=== PATIENT | female | born 1950 | race Caucasian/White ===

== ENCOUNTER → 2021-10-18 11:43 | Outpatient (CLI) | payer MEDICARE, OTHER, SELFPAY ==
--- NOTE | ~2021-10-18 | XR_ITS ---
XR knee RT min 4V DATE: 10/18/2021 11:56 INDICATION: Right knee pain. No injury. TECHNIQUE: AP, lateral, PA, sunrise views COMPARISON: None FINDINGS: There is superior pole patellar enthesopathy. No fracture or dislocation or joint effusion, periosteal reaction or bone destruction, radiopaque int ra-articular loose body or chondral calcinosis. Joint spaces are relatively preserved. IMPRESSION: Superior pole patellar enthesopathy Reviewed, dictated and finalized at location B.
== END ==
PROVIDERS: PCP Family Medicine; Visit Provider Family Medicine
DX: M25.561 Pain in right knee (principal); M77.31 Calcaneal spur, right foot
CPT/HCPCS: 73564

== ENCOUNTER 2021-10-22 09:08 | Outpatient (CLI) | payer MEDICARE, OTHER, SELFPAY ==
[2021-10-22 18:47] LABS: Hematocrit 44.8 % (37.0-47.0); Hemoglobin 14.6 g/dL (12.0-15.0); Mean Corpuscular HGB Conc 32.6 g/dl (32-36); Mean Corpuscular Hemoglobin 31.9 pg (26-34); Mean Platelet Volume 10.7 fl (7.4-10.4); Platelet Count Result 269 k/mm3 (150-375); Red Blood Count 4.57 M/mm3 (4.2-5.4); Red Cell Distribution Width 13.2 % (11.5-14.5); White Blood Count 5.9 K/mm3 (4.5-10.0)
[2021-10-22 18:58] LABS: Alanine Aminotransferase 23 U/L (6-35); Albumin Level 4.2 g/dL (3.5-5.1); Alkaline Phosphatase 47 U/L (38-126); Anion Gap 6 mmol/L (8-16); Aspartate Amino Transferase 35 U/L (14-36); Bilirubin,Total 0.5 mg/dL (0.2-1.3); Blood Urea Nitrogen 19 mg/dL (7-17); Calcium 9.1 mg/dL (8.4-10.2); Carbon Dioxide 29 mmol/L (22-30); Chloride 103 mmol/L (98-107); Cholesterol 224 mg/dL (0-200); Estimated Glomerular Filt Rate > 60; Glucose 97 mg/dL (65-110); HDL Direct 72 mg/dL; Potassium 4.1 mmol/L (3.4-5.0); Sodium 138 mmol/L (137-145); Triglycerides 72 mg/dL (<150)
[2021-10-22 19:08] LABS: LDL Cholesterol Direct 98 mg/dL
== END 2021-10-22 09:09 | disposition home or self-care (01) ==
PROVIDERS: PCP Family Medicine; Visit Provider Family Medicine
DX: G47.00 Insomnia, unspecified (principal); E78.5 Hyperlipidemia, unspecified; Z79.899 Other long term (current) drug therapy
CPT/HCPCS: 36415; 80053; 80061; 84443; 85027

== ENCOUNTER 2021-11-28 07:39 | Outpatient (CLI) | payer MEDICARE, OTHER, SELFPAY ==
--- NOTE | 2021-12-23 18:34 | WPDSLEEPSTUD ---
Sleep Study Date of Study: 11/28/21 Ordering Provider: Nieves Morley DO Interpreting Physician: Nieves Morley DO Sleep Study Type: Polysomnogram Height: 1.68 m Weight: 65.771 kg Body Mass Index: 23.3 Neck Circumference (inches): 13 [place]: 6 Reason for Sleep Study Insomnia Sleep History The patient is a 71-year-old female with insomnia, hyperlipidemia, interstitial cystitis and history of tobacco use that had a sleep study ordered for evaluation of her insomnia. The patient denies awakening from sleep short of breath. She denies awakening at night with heartburn, belching or cough. She occasionally snores loud enough that others complain. She occasionally has trouble sleeping when she has a cold. She denies waking up gasping for air throughout the night. She denies having breathing problems at night observed by herself or others. She occasionally sweats excessively at night. She occasionally has heart palpitations or irregular heartbeats during the night. He rarely falls asleep during the day but never while driving. She denies sleep paralysis and cataplexy. She rarely has trouble at school or work due to sleepiness. She occasionally experiences vivid dreamlike scenes upon awakening or falling asleep. She occasionally feels afraid of going to sleep. She denies having nightmares. She occasionally remembers her dreams. She constantly has thoughts racing through her mind. She rarely feels sad or depressed. She occasionally has anxiety. She rarely has muscular tension. She occasionally notices parts of her body jerk. She denies kicking during the night. She denies having crawling and aching feelings in her legs as well as leg pain during the night. She occasionally grinds her teeth during sleep but never awakens with morning jaw pain. She is rarely bothered by pain during the day but occasionally awakened by pain during the night. She occasionally wakes up feeling stiff in the morning. She occasionally wakes up with sore or achy muscles. She occasionally wakes up with pain in the neck, spine or other joints. She goes to bed at 10:00 p.m. of both weekdays and weekends. She is able to fall asleep within 10-15 minutes if she takes her lorazepam. She will wake up at most once throughout the night if she takes her lorazepam. If she does not, she will wake up 3-4 times throughout the night. when she awakens, she will read, listen to a book or do yoga. It can take her 60-90 minutes to fall back asleep if she does not take the lorazepam. She wakes up at 7:00 a.m. on both weekdays and weekends. She gets 7 hours of sleep when she takes her medicine and 3-4 hours of sleep if she does not. She will stay in bed for 30 minutes after waking up in the morning. She currently lives with her . She does not consume any caffeinated beverages within 2 hours of bedtime. She does not engage in physical exercise before bedtime. She will read before falling asleep. She does not watch television before falling asleep. She will read before falling asleep. She does not take naps in the afternoon or the evening. She drinks 2 cups of caffeinated beverage before 1:00 p.m.. He drinks 2 alcoholic beverages per week. She quit smoking cigarettes over 40 years ago. She denies recreational drug use. [facility] Past Medical History Medical History Interstitial cystitis Surgical History Surgical History History of hysterectomy Hx of cholecystectomy Family History Family History Other Alcohol abuse Father Lung cancer Sibling Lung cancer Social History Social History Smoking status: Never smoker Alcohol intake: current Drinks per week: 3 Alcohol use details: Beer/Wine Substance use: bill
[2021-12-23 18:44] VITALS: BMI 23.3
== END 2021-11-29 06:26 | disposition home or self-care (01) ==
PROVIDERS: PCP Family Medicine; Visit Provider Family Medicine
DX: G47.9 Sleep disorder, unspecified (principal); G47.61 Periodic limb movement disorder
CPT/HCPCS: 95810

== ENCOUNTER 2022-01-11 09:07 | Emergency (ER) | payer MEDICARE, OTHER, SELFPAY ==
[2022-01-11 09:25] VITALS: BP 126/76; PULSE 76; RESP 16; TEMP 36.6; O2SAT 100
--- NOTE | 2022-01-11 10:52 | ED.URI ---
HPI - URI/Sore Throat General Chief Complaint: Upper Respiratory Infection Stated Complaint: sore throat congestion Time Seen by Provider: 01/11/22 10:53 Source: patient, RN notes reviewed and old records reviewed Mode of arrival: ambulatory Limitations: no limitations History of Present Illness HPI Narrative: 71-year-old female who presents to [facility] with complaints of sore throat, body aches, right ear pain since yesterday. Patient has taken some ibuprofen for her symptoms. Patient states she did flu shot yesterday and has been COVID vaccinated.Patient did home testing for COVID which was negative this a.m. Patient reports that her throat is painful rates it 8/10 achy and sharp with some neck pain also MD elicited complaint: sore throat and nasal congestion Pain scale (0-10): 8 Treatments prior to arrival: ibuprofen Related Data Home Medications Medication Instructions Recorded Confirmed multivitamin (Daily Multi-Vitamin 1 tablet PO DAILY 10/18/21 01/11/22 tablet) vit C 250 mg-E 90 mg-zinc 40 1 tablet PO QAM AND QPM 10/18/21 01/11/22 mg-copper 1 [id number] chew tablet (PreserVision AREDS-2) bergamot extract 650 mg tablet 650 mg PO DAILY 11/06/21 01/11/22 cranberry 500 mg capsule 500 mg PO DAILY 11/06/21 01/11/22 melatonin 10 mg capsule 10 mg PO QHS 11/06/21 01/11/22 famotidine 20 mg tablet 20 mg PO DAILY 01/11/22 01/11/22 Allergies Allergy/AdvReac Type Severity Reaction Status Date / Time Penicillins Allergy Unknown Hives Verified 01/11/22 09:55 Sulfa (Sulfonamide Allergy Unknown Hives Verified 01/11/22 09:55 Antibiotics) Inhaled Anesthetics (Halogen AdvReac Severe Nausea and Verified 01/11/22 09:55 Based) Vomiting trazodone AdvReac Mild Palpitation Uncoded 01/01/22 10:54 s Review of Systems Review of Systems: CONSTITUTIONAL: Denies malaise, chills, sweats, or fever. EYES: Denies visual changes, redness, or discharge. ENT: rhinorrhea, congestion,no sinus pain,right otalgia and sore throat. CARDIOVASCULAR: Denies chest pain, palpitations, or edema. RESPIRATORY: Reports occasional dry cough.? Denies dyspnea. GASTROINTESTINAL: Denies abdominal pain, nausea, vomiting, diarrhea SKIN: Denies rash or itching. MUSCULOSKELETAL: Reports myalgia. NEUROLOGIC: Denies headache. All systems reviewed & are unremarkable except as noted in HPI and below PMFSH Past Medical History Medical History Interstitial cystitis Surgical History Surgical History History of hysterectomy Hx of cholecystectomy Family History Family History Other Alcohol abuse Father Lung cancer Sibling Lung cancer Social History Social History (Updated 01/01/22 @ 10:57 by GRICELDA Boland) Smoking status: Never smoker Alcohol intake: current Drinks per week: 3 Alcohol use details: Beer/Wine Substance use: never Substance use type: does not use Lack of Transportation: No Lack of Food: Never True Current Housing: I Have Housing Concerned About Future Housing: No Difficulty Paying Gas/Electric Bills: No Difficulty Paying for Meds: No Currently Unemployed: No Education: Bachelor's Degree Difficulty w/ Childcare or Family Care: No Additional living arrangements comments: Gender identity (if verbalized by the patient): Female Sexual Orientation (if Verbalized by the Patient): Straight or Heterosexual Agree to blood products: Yes Comments At time of signature, agree with nursing past medical, surgical, social and family history. There is no relevant family history pertinent to the presenting complaint Exam Narrative: GENERAL: Well-appearing, well-nourished, and in no acute distress. HEAD: Normocephalic EYES: PERRLA, conjunctivae clear ENT: Nares clear, turbinates edematous
== END 2022-01-11 11:05 | disposition home or self-care (01) ==
PROVIDERS: Emergency Provider Registered Nurse; PCP Family Medicine
DX: J06.9 Acute upper respiratory infection, unspecified (principal)
CPT/HCPCS: 87081; 87804; 87880; 99213; G0463

== ENCOUNTER 2022-01-22 12:34 | Emergency (ER) | payer MEDICARE, OTHER, SELFPAY ==
[2022-01-22 12:39] VITALS: BP 121/98; PULSE 84; RESP 16; TEMP 37.2; O2SAT 98
--- NOTE | 2022-01-22 13:03 | ED.URI ---
HPI - URI/Sore Throat General Chief Complaint: Upper Respiratory Infection Stated Complaint: FEVER/SORE THROAT/COUGH Time Seen by Provider: 01/22/22 13:03 Source: patient and RN notes reviewed Mode of arrival: ambulatory Limitations: no limitations History of Present Illness HPI Narrative: 71 y/o female presented for c/o sinus pressure, congestion, cough for over 10 days. Patient tested negative for flu and strep at the onset of symptoms. Endorses she has had intermittent improvement in symptoms but woke today with body aches and subjective fever. Denies sob, wheezing, chest pain, n/v/d. Taking Sudafed and Benadryl for symptoms. MD elicited complaint: cough Related Data Home Medications Medication Instructions Recorded Confirmed multivitamin (Daily Multi-Vitamin 1 tablet PO DAILY 10/18/21 01/11/22 tablet) vit C 250 mg-E 90 mg-zinc 40 1 tablet PO QAM AND QPM 10/18/21 01/11/22 mg-copper 1 [id number]-gitvfg-ydhxlv chew tablet (PreserVision AREDS-2) bergamot extract 650 mg tablet 650 mg PO DAILY 11/06/21 01/11/22 cranberry 500 mg capsule 500 mg PO DAILY 11/06/21 01/11/22 melatonin 10 mg capsule 10 mg PO QHS 11/06/21 01/11/22 famotidine 20 mg tablet 20 mg PO DAILY 01/11/22 01/11/22 Allergies Allergy/AdvReac Type Severity Reaction Status Date / Time Penicillins Allergy Unknown Hives Verified 01/22/22 12:46 Sulfa (Sulfonamide Allergy Unknown Hives Verified 01/22/22 12:46 Antibiotics) Inhaled Anesthetics (Halogen AdvReac Severe Nausea and Verified 01/22/22 12:46 Based) Vomiting trazodone AdvReac Mild Palpitation Uncoded 01/22/22 12:46 s Review of Systems Review of Systems: ROS per HPI PMFSH Past Medical History Medical History Interstitial cystitis Surgical History Surgical History History of hysterectomy Hx of cholecystectomy Family History Family History Other Alcohol abuse Father Lung cancer Sibling Lung cancer Social History Social History Smoking status: Never smoker Alcohol intake: current Drinks per week: 3 Alcohol use details: Beer/Wine Substance use: never Substance use type: does not use Lack of Transportation: No Lack of Food: Never True Current Housing: I Have Housing Concerned About Future Housing: No Difficulty Paying Gas/Electric Bills: No Difficulty Paying for Meds: No Currently Unemployed: No Education: Bachelor's Degree Difficulty w/ Childcare or Family Care: No Additional living arrangements comments: Gender identity (if verbalized by the patient): Female Sexual Orientation (if Verbalized by the Patient): Straight or Heterosexual Agree to blood products: Yes Exam Narrative: GENERAL: well-appearing EYES: PERRLA, conjunctivae clear ENT: Mucous membranes moist. TMs pearly bower with dull light reflex bilaterally; no tragal tenderness. Oropharynx normal without lesions or exudate, no drooling, no hoarseness, no trismus, uvula midline. CHEST: Clear to auscultation, breath sounds equal. No wheezing, rhonchi, rales, or stridor. No respiratory distress, speaks in full sentences. HEART: Regular rate and rhythm. No murmur heard. SKIN: Warm, dry, no rash. NEURO: Alert and oriented x3. PSYCH: Normal mood and affect Course Course Emergency Course: Patient is aware of diagnosis, understands and agrees to treatment plan. Anticipatory guidance given. Patient agrees to follow-up as directed and is aware of reasons to seek care at the emergency department. Portions of this record may have been created with voice recognition software Level of Care: Express Care Visit Vital Signs Vital signs: Vital Signs Temperature 98.9 F 01/22/22 12:39 Pulse Rate 84 01/22/22 12:39 Respiratory Rate 16 01/22/22
== END 2022-01-22 13:14 | disposition home or self-care (01) ==
PROVIDERS: Emergency Provider Nurse Practitioner Family; PCP Family Medicine
DX: J06.9 Acute upper respiratory infection, unspecified (principal)
CPT/HCPCS: 87804; 99213; G0463

== ENCOUNTER 2022-02-11 15:28 | Outpatient (CLI) | payer MEDICARE, OTHER, SELFPAY ==
--- NOTE | ~2022-02-11 | MM_ITS ---
EXAMINATION: MM screening erickson BI w leah HISTORY: Screening mammogram TECHNIQUE: Craniocaudal and mediolateral oblique 3-D tomosynthesis images were obtained and synthetic 2-D images were generated. CAD analysis was submitted and interpreted. COMPARISON: No prior mammogram is available for comparison at this institution. BREAST PARENCHYMAL COMPOSITION: There are scattered areas of fibroglandular density. FINDINGS: Approximately 7 mm circumscribed mass is noted in the posterior aspect of the upper inner q uadrant of the left breast; diagnostic left mammogram and left breast ultrasound examination are magda mmended. Probable benign posterior upper outer quadrant right intramammary lymph node. No suspicious mass, architectural distortion, malignant constipation, skin thickening or retraction o f either breast is noted otherwise. IMPRESSION: 1. 7 mm posterior upper inner quadrant left breast mass 2. Diagnostic left mammogram and left breast ultrasound examination are recommended BI-RADS Category 0: Incomplete: Needs additional imaging evaluation. Reviewed, dictated and finalized at location A. [facility] IMPRESSION: 1. 7 mm posterior upper inner quadrant left breast mass 2. Diagnostic left mammogram and left breast ultrasound examination are recomme nded BI-RADS Category 0: Incomplete: Needs additional imaging evaluation.
== END 2022-02-11 15:29 | disposition home or self-care (01) ==
PROVIDERS: PCP Family Medicine; Visit Provider Family Medicine
DX: Z12.31 Encounter for screening mammogram for malignant neoplasm of breast (principal)
CPT/HCPCS: 77063; 77067

== ENCOUNTER 2022-07-08 18:20 | Emergency (ER) | payer MEDICARE, OTHER, SELFPAY | END 2022-07-08 18:48 | disposition home or self-care (01) | PROVIDERS: Emergency Provider Nurse Practitioner | DX: A08.4 Viral intestinal infection, unspecified (principal) | CPT/HCPCS: 99213; G0463 ==

== ENCOUNTER 2022-09-05 18:07 | Emergency (ER) | payer MEDICARE, OTHER, SELFPAY ==
--- NOTE | 2022-09-05 18:10 | ED.EAR ---
HPI - Ear Problem General Chief complaint: Ear Stated complaint: EARACHE Time Seen by Provider: 09/05/22 18:09 Source: patient Mode of arrival: ambulatory Limitations: no limitations History of Present Illness HPI Narrative: Tayler is a 72-year-old female presenting to the clinic today with complaints of an right earache x2 weeks. Reports that the pain has been worse over the last 2 days. Denies any fever or chills. Has also been suffering from some nasal congestion. Related Data Home Medications Medication Instructions Recorded Confirmed multivitamin (Daily Multi-Vitamin 1 tablet PO DAILY 10/18/21 09/05/22 tablet) vit C 250 mg-E 90 mg-zinc 40 1 tablet PO QAM AND QPM 10/18/21 09/05/22 mg-copper 1 wg-[id number]-pxzooc chew tablet (PreserVision AREDS-2) bergamot extract 650 mg tablet 650 mg PO DAILY 11/06/21 09/05/22 cranberry 500 mg capsule 500 mg PO DAILY 11/06/21 09/05/22 melatonin 10 mg capsule 10 mg PO QHS 11/06/21 09/05/22 lactobacillus combination no.9 4 4,000 mmu cells PO DAILY 05/28/22 09/05/22 billion cell capsule (Adult 50 Plus Probiotic) Allergies Allergy/AdvReac Type Severity Reaction Status Date / Time Penicillins Allergy Unknown Hives Verified 08/25/22 12:46 Sulfa (Sulfonamide Allergy Unknown Hives Verified 08/25/22 12:46 Antibiotics) Inhaled Anesthetics (Halogen AdvReac Severe Nausea and Verified 08/25/22 12:46 Based) Vomiting trazodone AdvReac Mild Palpitation Uncoded 08/25/22 12:46 s Review of Systems Review of Systems: Pertinent positives per HPI. Patient denies any fever, chills, rash, headache, visual changes, dizziness,sore throat, shortness of breath, chest pain, palpitations, nausea, vomiting, diarrhea, constipation, abdominal pain, or any urinary issues. PMFSH Past Medical History Medical History Interstitial cystitis Surgical History Surgical History History of hysterectomy Hx of cholecystectomy Family History Family History Other Alcohol abuse Father Lung cancer Sibling Lung cancer Social History Social History Smoking status: Never smoker Alcohol intake: current Drinks per week: 3 Alcohol use details: Beer/Wine Substance use: never Substance use type: does not use Lack of Transportation: No Lack of Food: Never True Current Housing: I Have Housing Concerned About Future Housing: No Difficulty Paying Gas/Electric Bills: No Difficulty Paying for Meds: No Currently Unemployed: No Education: Bachelor's Degree Difficulty w/ Childcare or Family Care: No Living arrangements: with family Additional living arrangements comments: Occupation/Education: retired Gender identity (if verbalized by the patient): Female Sexual Orientation (if Verbalized by the Patient): Straight or Heterosexual Agree to blood products: Yes Comments At the time of my signature, I reviewed and agree with the nursing past medical, surgical, social, and family history. There is no relevant family history pertinent to the patient complaint. Exam Narrative: General: Well-developed, well nourished, in no apparent distress Head: Normocephalic, atraumatic Eyes: Pupils equally round and reactive to light bilaterally, EOM intact, sclera and conjunctive clear, no discharge, lids normal Ears: TMs intact and clear, ear canals clear, no drainage, grossly hearing normal. Nose: Nares patent, no discharge, no inflammation, no sinus tenderness. Mouth: Oropharynx without lesions or masses, good dentition, MMM. Neck: Supple, trachea midline, no enlargement of anterior or posterior cervical nodes, no thyroid masses or goiter palpable. Cardio: Regular rate and rhythm, s1 and s2 normal, no mu
[2022-09-05 18:26] VITALS: BP 140/87; PULSE 65; RESP 16; TEMP 36.6; O2SAT 100
== END 2022-09-05 18:35 | disposition home or self-care (01) ==
PROVIDERS: Emergency Provider Nurse Practitioner Family; PCP Family Medicine
DX: H65.01 Acute serous otitis media, right ear (principal)
CPT/HCPCS: 99213; G0463

== ENCOUNTER 2022-11-05 12:44 | Outpatient (CLI) | payer MEDICARE, OTHER, SELFPAY | END 2022-11-05 12:45 | disposition home or self-care (01) | LOC: ANHAUDASC 13:17 | PROVIDERS: PCP Family Medicine; Visit Provider Otolaryngology | DX: H69.90 Unspecified Eustachian tube disorder, unspecified ear (principal); H81.10 Benign paroxysmal vertigo, unspecified ear; H90.3 Sensorineural hearing loss, bilateral | CPT/HCPCS: 92557; 92567 ==

== ENCOUNTER 2022-11-07 09:56 | Emergency (ER) | payer MEDICARE, OTHER, SELFPAY ==
--- NOTE | ~2022-11-07 | XR_ITS ---
EXAMINATION: XR ribs LT 2V w CXR 2V DATE: 11/07/2022 10:30 INDICATION: Anterior lower left rib pain post fall 2 weeks prior TECHNIQUE: Frontal and lateral views of the chest and 3 views of the left ribs were obtained. COMPARISON: None FINDINGS: Signal change and cortical contour along the anterior left 10th rib consistent with age-indeterminate nondisplaced fracture. No other rib fractures identified. Ventricles are clear with no focal airspac e opacities, pulmonary edema, pleural effusion or pneumothorax. Heart size is normal. Cholecystectomy clips in right upper quadrant. IMPRESSION: 1. Nondisplaced age-indeterminate anterior left 10th rib fracture. No pneumothorax or other acute car diopulmonary disease. Reviewed, dictated and finalized at location A. IMPRESSION: 1. Nondisplaced age-indeterminate anterior left 10th rib fracture. No pneumotho rax or other acute cardiopulmonary disease.
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
[2022-11-07 10:12] VITALS: BP 119/76; PULSE 68; RESP 16; TEMP 36.5; O2SAT 98
== END 2022-11-07 11:01 | disposition home or self-care (01) ==
PROVIDERS: Emergency Provider Nurse Practitioner Family; PCP Family Medicine
DX: S22.32XA Fracture of one rib, left side, initial encounter for closed fracture (principal); V27.41XA Electric (assisted) bicycle driver injured in collision with fixed or stationary object in traffic accident, initial encounter
CPT/HCPCS: 71046; 71100; 99213; G0463

== ENCOUNTER 2022-12-12 17:02 | Emergency (ER) | payer MEDICARE, OTHER, SELFPAY ==
--- NOTE | ~2022-12-12 | XR_ITS ---
EXAMINATION: XR hand RT min 3V INDICATION: Right hand pain TECHNIQUE: Three views of the right hand are obtained. COMPARISON: None available FINDINGS: No acute fracture is identified. 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 The soft tissues are unremarkable. IMPRESSION: 1. No acute osseous abnormality. Reviewed, dictated and finalized at location F.
--- NOTE | 2022-12-12 17:09 | ED.GENADULT ---
HPI - General Adult General Chief complaint: Animal Bite Stated complaint: RT and LT Arm Bug Bite,Nausea,RT Hand Injury Time Seen by Provider: 12/12/22 17:19 Source: patient, RN notes reviewed and old records reviewed Mode of arrival: ambulatory Limitations: no limitations History of Present Illness HPI narrative: 72-year-old female presents to the [facility] with complaints of insect stings to bilateral wrists, redness and swelling noted. Occurred yesterday Patient also complains of right hand injury states that she was using an auger when it got caught up on something and twisted causing pain, bruising and swelling noted to the dorsal aspect of the right hand over MCPs 3 4 in 5 Does have a strong interlocking and signal mechanic. Related Data Home Medications Medication Instructions Recorded Confirmed multivitamin (Daily Multi-Vitamin 1 tablet PO DAILY 10/18/21 12/12/22 tablet) bergamot extract 650 mg tablet 650 mg PO DAILY 11/06/21 12/12/22 cranberry 500 mg capsule 500 mg PO DAILY 11/06/21 12/12/22 melatonin 10 mg capsule 10 mg PO QHS 11/06/21 12/12/22 cetirizine 10 mg tablet (Zyrtec) 10 mg PO DAILY PRN Allergic 09/15/22 12/12/22 Symptoms ferrous sulfate 325 mg (65 mg 325 mg PO DAILY 09/18/22 12/12/22 iron) tablet Allergies Allergy/AdvReac Type Severity Reaction Status Date / Time Penicillins Allergy Unknown Hives Verified 12/12/22 17:14 Sulfa (Sulfonamide Allergy Unknown Hives Verified 12/12/22 17:14 Antibiotics) Inhaled Anesthetics (Halogen AdvReac Severe Nausea and Verified 12/12/22 17:14 Based) Vomiting trazodone AdvReac Mild Palpitation Uncoded 12/12/22 17:14 s Review of Systems Review of Systems: All systems reviewed & are unremarkable except as noted in HPI and below Constitutional: Constitutional: Reports no additional constitutional complaints Eyes: Eyes: Reports no additional eye complaints ENT: Reports system reviewed and no additional complaints, except as documented Cardiovascular: Cardiovascular: Reports no additional cardiovascular complaints, Denies chest pain and Denies dyspnea Respiratory: Respiratory: Reports no additional respiratory complaints, Denies chest congestion, Denies cough and Denies dyspnea Gastrointestinal: Gastrointestinal: Reports no additional gastrointestinal complaints, Denies abdominal pain, Denies nausea and Denies vomiting Musculoskeletal: Musculoskeletal: Reports as per HPI Integumentary/Breasts: Skin/Breast: Reports as per HPI Neurologic: Reports system reviewed and no additional complaints, except as documented Psychiatric: Psychiatric: Reports no additional psychiatric complaints Allergic/Immunologic: Allergic/Immunologic: Reports no additional allergic/immunologic complaints [facility] Past Medical History Medical History Interstitial cystitis Surgical History Surgical History History of hysterectomy Hx of cholecystectomy Family History Family History Other Alcohol abuse Father Lung cancer Sibling Lung cancer Social History Social History Smoking status: Never smoker Alcohol intake: current Drinks per week: 3 Alcohol use details: Beer/Wine Substance use: never Substance use type: does not use Lack of Transportation: No Lack of Food: Never True Current Housing: I Have Housing Concerned About Future Housing: No Difficulty Paying Gas/Electric Bills: No Difficulty Paying for Meds: No Currently Unemployed: No Education: Bachelor's Degree Difficulty w/ Childcare or Family Care: No Living arrangements: with family Additional living arrangements comments: Occupation/Education: retired Gender identity (if verbalized by the patient): Female Sexual Orientation (if Verbalized by the Patient): Straight o
[2022-12-12 17:14] VITALS: BP 120/84; PULSE 76; RESP 18; TEMP 37; O2SAT 98
[2022-12-12 17:16] VITALS: BP 120/84; PULSE 76; RESP 18; TEMP 37; O2SAT 98
== END 2022-12-12 18:17 | disposition home or self-care (01) ==
PROVIDERS: Emergency Provider Nurse Practitioner; PCP Family Medicine
DX: T63.451A Toxic effect of venom of hornets, accidental (unintentional), initial encounter (principal); S60.221A Contusion of right hand, initial encounter; X50.9XXA Other and unspecified overexertion or strenuous movements or postures, initial encounter
CPT/HCPCS: 73130; 99213; G0463

== ENCOUNTER 2023-05-26 09:36 | Outpatient (CLI) | payer MEDICARE, OTHER, SELFPAY ==
--- NOTE | ~2023-05-26 | DEXA_ITS ---
Bone Density Report Name: SERGO VELÁZQUEZ Age: 72 Sex: Female Ethnicity: White Date of : 1950 Indication: postmenopausal; screening for osteoporosis; hysterectomy; Referring Provider: THOMAS JOHNSON Study: Bone densitometry was performed. Exam Date: May 26, 2023 Accession number: [id number] Bone Density: Region BMD T-score Z-score Classification AP Spine(L1-L4) 0.863 -1.7 0.5 Osteopenia Femoral Neck (Left) 0.695 -1.4 0.5 Osteopenia Total Hip (Left) 0.848 -0.8 0.8 Normal Femoral Neck (Right) 0.647 -1.8 0.0 Osteopenia Total Hip (Right) 0.839 -0.8 0.7 Normal Total Hip Mean 0.843 -0.8 0.8 Normal World Health Organization criteria for BMD impression classify patients as: Normal (T-score at or above -1.0), Osteopenia (T-score between -1.0 and -2.5), or Osteoporosis (T-score at or below -2.5). 10-year Fracture Risk(1): Major Osteoporotic Fracture 11% Hip Fracture 2.1% Reported Risk Factors: [place] (), Neck BMD=0.647, BMI=24.2 (1) FRAX(R) Version 3.08. Fracture probability calculated for an untreated patient. Fracture probability may be lower if the patient has received treatment. Clinical Information Provided by Patient: Has used the following medications: Vitamin D, Calcium Has the following medical conditions: Hysterectomy Patient maximum height was 66.5 Drinks caffeinated beverages Onset of menses at age 16 Number of children 2 Impression: The patient has low bone mass, based on the Right Femoral Neck T-score. The patient has an estimated ten-year risk of hip fracture of 2.1% and an estimated ten-year risk of major fracture of 11%, based on the WHO FRAX algorithm. Discussion: BONE DENSITY IS LOW AT ONE OR MORE SKELETAL SITES. This patient's lowest T-score is low at one or more skeletal sites. It meets the World Health Organization's (WHO) criteria for ?low bone mass? (T-score between -1.0 and -2.5). The patient's 10-year risk of fracture as calculated by FRAX is less than the threshold where pharmacological therapy is recommended by the National Osteoporosis Foundation (NOF). However, all treatment decisions require clinical judgment and consideration of individual patient factors, including patient preferences, comorbidities, previous drug use, risk factors not captured in the FRAX model (e.g., frailty, falls, vitamin D deficiency, increased bone turnover, interval significant decline in bone density) and possible under or overestimation of fracture risk by FRAX. The patient should follow a healthful lifestyle (good nutrition with adequate calcium and vitamin D, and appropriate weight-bearing exercise). Follow-Up: Consider repeating this study in 2 to 3 years to reassess this patient's status, or sooner if there is some new clinical indication.
--- NOTE | ~2023-05-26 | MM_ITS ---
EXAMINATION: MM screening erickson BI w leah HISTORY: Screening mammogram TECHNIQUE: Craniocaudal and mediolateral oblique 3-D tomosynthesis images were obtained and synthetic 2-D images were generated. CAD analysis was submitted and interpreted. COMPARISON: 02/11/2022, 01/31/2021 bilateral screening mammogram examinations BREAST PARENCHYMAL COMPOSITION: There are scattered areas of fibroglandular density. FINDINGS: There are chronic mild stable mammographic asymmetries including stable benign intramammary lymph node in the posterior upper right breast and stable low-density circumscribed approximately 7 mm mass in the posterior upper inner left breast, not significant changed since 02/11/2022. There is no evidence of suspicious mass, calcification, or architectural distortion to suggest malignancy in e ither breast. There has been no suspicious interval change. IMPRESSION: 1. No mammographic evidence of malignancy. 2. Recommend routine screening mammography in one year. BI-RADS Category 2: Benign finding(s). Reviewed, dictated and finalized at location A.
== END 2023-05-26 09:37 | disposition home or self-care (01) ==
PROVIDERS: PCP Family Medicine; Visit Provider Family Medicine
DX: Z12.31 Encounter for screening mammogram for malignant neoplasm of breast (principal); Z78.0 Asymptomatic menopausal state; M85.88 Other specified disorders of bone density and structure, other site; M85.852 Other specified disorders of bone density and structure, left thigh; M85.851 Other specified disorders of bone density and structure, right thigh
CPT/HCPCS: 77063; 77067; 77080

== ENCOUNTER 2023-08-17 10:48 | Outpatient (CLI) | payer MEDICARE, OTHER, SELFPAY ==
[2023-08-17 19:40] LABS: Basophils Percent Auto 0.4 % (0.2-1.2); Eosinophils Absolute Auto 0.1 K/mm3 (0-0.3); Eosinophils Percent Auto 1.4 % (0-4.4); Hematocrit 47.7 % (37.0-47.0); Hemoglobin 15.6 g/dL (12.0-15.0); Immature Granulocyte Absolute 0.03 K/mm3 (0.00-0.031); Immature Granulocyte Percent A 0.4 % (0-0.5); Lymphocytes Absolute Auto 2.21 K/mm3 (0.9-3.2); Lymphocytes Percent Auto 25.8 % (18.3-44.2); Mean Corpuscular HGB Conc 32.7 g/dl (32-36); Mean Corpuscular Hemoglobin 32.1 pg (26-34); Mean Corpuscular Volume 98.1 fl (80-100); Monocytes Absolute Auto 0.8 K/mm3 (0.1-0.6); Monocytes Percent Auto 9.8 % (2.6-8.5); Neutrophils Absolute Auto 5.3 K/mm3 (1.3-6.7); Neutrophils Percent Auto 62.2 % (45.5-73.1); Platelet Count Result 281 k/mm3 (150-375); Red Blood Count 4.86 M/mm3 (4.2-5.4); Red Cell Distribution Width 12.8 % (11.5-14.5); White Blood Count 8.6 K/mm3 (4.5-10.0)
[2023-08-17 20:03] LABS: Free T4 Free Thyroxine 1.26 ng/mL (0.78-2.19)
[2023-08-17 20:17] LABS: Alanine Aminotransferase 25 U/L (6-35); Albumin Level 4.4 g/dL (3.5-5.1); Alkaline Phosphatase 59 U/L (38-126); Anion Gap 4 mmol/L (4-12); Aspartate Amino Transferase 46 U/L (14-36); Bilirubin,Total 0.6 mg/dL (0.2-1.3); Blood Urea Nitrogen 15 mg/dL (7-17); Calcium 9.5 mg/dL (8.4-10.2); Carbon Dioxide 32 mmol/L (22-30); Chloride 104 mmol/L (98-107); Estimated Glomerular Filt Rate > 60; Glucose 83 mg/dL (65-110); Potassium 4.7 mmol/L (3.4-5.0); Sodium 140 mmol/L (137-145)
[2023-08-17 20:36] LABS: Erythrocyte Sedimentation Rate 7 mm/hr (0-20)
[2023-08-17 21:28] LABS: Folic Acid > 20.0 ng/mL (2.76->20)
== END 2023-08-17 10:49 | disposition home or self-care (01) ==
LOC: ANHGOSHLAB 10:50
PROVIDERS: PCP Family Medicine; Visit Provider Internal Medicine
DX: G47.00 Insomnia, unspecified (principal); G47.9 Sleep disorder, unspecified; R53.83 Other fatigue; Z79.899 Other long term (current) drug therapy
CPT/HCPCS: 36415; 80053; 82607; 82746; 84439; 84443; 85025; 85652

== ENCOUNTER 2024-05-26 16:03 | Outpatient (CLI) | payer MEDICARE, OTHER, SELFPAY ==
--- NOTE | ~2024-05-26 | MM_ITS ---
EXAMINATION: MM screening erickson BI w leah HISTORY: Screening TECHNIQUE: Craniocaudal and mediolateral oblique 3-D tomosynthesis images were obtained and synthetic 2-D images were generated. CAD analysis was submitted and interpreted. COMPARISON: Comparison to multiple prior studies sequentially, with oldest reviewed study dated 01/16. BREAST PARENCHYMAL COMPOSITION: Not dense: There are scattered areas of fibroglandular density. FINDINGS: Stable benign mass upper inner quadrant of the left breast, middle third. There is no evide nce of suspicious mass, calcification, or architectural distortion to suggest malignancy in either br east. There has been no suspicious interval change. IMPRESSION: 1. No mammographic evidence of malignancy. 2. Recommend routine screening mammography in one year. BI-RADS Category 2: Benign finding(s). Reviewed, dictated and finalized at location A.
--- OUTSIDE RECORDS SUMMARY | 2024-05-26 16:08 | XMS_ITS | Encounter Summary ---
Author Organization [facility] Address [address] [place] [id number] Care Team Providers Care Patient Registration Clerk Name Role Phone Jose Rosario MD Primary Care Provider [phone] Airam Jaramillo MD Unavailable [phone] Encounter Details Date Type Department Care Team (Latest Contact Info) Description 06/04/2020 velingot Message Enc [facility] Multispecialty Care - [address] [address] [address] [place] [address] Jose Rosario MD [address] [facility] [address] [place] [address] RE:Cologuard results Social History Tobacco Use Types Packs/Day Years Used Date Smoking Tobacco: Former Cigarettes Smokeless Tobacco: Never Comments:counseled to avoid smoking Alcohol Use Standard Drinks/Week Comments Yes 0 (1 standard drink = 0.6 oz pur e alcohol) 1 glass of wine nightly PHQ-2 Answer Date Recorded PHQ-2 Score - If the patient scores above 3, please move on to questions 3-9 0 01/09/2020 Comments No Sex and Gender Information Value Date Recorded Sex Assigned at Not on file Legal Sex Female 10:23 AM CDT Gender Identity Not on file Sexual Orientation Not on file COVID-19 Exposure Response Date Recorded In the last month, have you been in contact with someone who was confirmed or suspected to have Coronavirus / COVID-19? No / Unsure 05/29/2020 9:01 AM CDT documented as of this encounter Functional Status * RETIRED Are you deaf or do you have serious difficulty hearing Answer Date of Assessment Author Status No 01/09/2020 3:11 PM EXECUTIVE KITCHEN MANAGER Activ e documented as of this encounter Plan of Treatment Not on file documented as of this encounter Visit Diagnoses Not on filedocumented in this encounter Additional Health Concerns Assessment Noted Time PHQ-9 Depression Total Score: 0 01/09/20 20 3:00 PM EXECUTIVE KITCHEN MANAGER documented as of this encounter Care Teams Patient Registration Clerk Relationship Specialty Start Date End Date Jose Rosario MD [address] [facility] [address] [place] [address] PCP - General INTERNAL MEDICINE 12/01/19 04/12/24 Airam Jaramillo MD [address] [place] [address] DERMATOLOGY 02/06/21 documented as of this encounter
--- OUTSIDE RECORDS SUMMARY | 2024-05-26 16:08 | XMS_ITS | Encounter Summary ---
Author Organization [facility] Address [address] [place] [address] Care Team Providers Care Finance Director Name Role Phone Jose Rosario MD Primary Care Provider [phone] Airam Jaramillo MD Unavailable [phone] Encounter Details Date Type Department Care Team (Latest Contact Info) Description 02/06/2021 ShiftPlanning Message Enc [facility] Multispecialty Care - [address] [place], [place] [id number] Jose Rosario MD [address] [facility] [address] [place] [address] specialty pharmacy call Social History Tobacco Use Types Packs/Day Years Used Date Smoking Tobacco: Former Cigarettes Smokeless Tobacco: Never Comments:counseled to avoid smoking by Dr Rosario Alcohol Use Standard Drinks/Week Comments Yes 5 (1 standard drink = 0.6 oz pur e alcohol) PHQ-2 Answer Date Recorded PHQ-2 Score - If the patient scores above 3, please move on to questions 3-9 0 02/06/2021 Comments No Sex and Gender Information Value Date Recorded Sex Assigned at Not on file Legal Sex Female 10:23 AM CDT Gender Identity Not on file Sexual Orientation Not on file COVID-19 Exposure Response Date Recorded In the last month, have you been in contact with someone who was confirmed or suspected to have Coronavirus / COVID-19? No / Unsure 02/06/2021 1:34 PM FOXING CLOSER documented as of this encounter Functional Status * RETIRED Are you deaf or do you have serious difficulty hearing Answer Date of Assessment Author Status No 01/09/2020 3:11 PM FOXING CLOSER Activ e documented as of this encounter Plan of Treatment Not on file documented as of this encounter Visit Diagnoses Not on filedocumented in this encounter Additional Health Concerns Assessment Noted Time PHQ-9 Depression Total Score: 0 02/07/20 1:57 PM FOXING CLOSER documented as of this encounter Care Teams Finance Director Relationship Specialty Start Date End Date Jose Rosario MD [address] [facility] [address] [place] [address] PCP - General INTERNAL MEDICINE 12/01/19 04/12/24 Airam Jaramillo MD [address] [place] [address] DERMATOLOGY 02/06/21 documented as of this encounter
--- OUTSIDE RECORDS SUMMARY | 2024-05-26 16:08 | XMS_ITS | Encounter Summary ---
Author Organization [facility] Address [address] [place] [address] Care Team Providers Care Crane Operator Cab Name Role Phone Jose Rosario MD Primary Care Provider [phone] Airam Jaramillo MD Unavailable [phone] Encounter Details Date Type Department Care Team (Late st Contact Info) Description 05/21/2020 CicerOOst Message Enc [facility] Multispecialty Care - [address] [address] [address] [place] [address] [place] [address] [place] [address] [address] [place] [address] RE:lab tests Social History Tobacco Use Types Packs/Day Years [...] have Coronavirus / COVID-19? No / Unsure 05/21/2020 8:47 AM CDT documented as of this encounter Functional Status * RETIRED Are you deaf or do you have serious difficulty hearing Answer Date of Assessment Author Status No 01/09/2020 3:11 PM LITHOGRAPHER APPRENTICE Activ e documented as of this encounter Plan of Treatment Not on file documented as of this encounter Visit Diagnoses Not on filedocumented in this encounter Additional Health Concerns Assessment Noted Time PHQ-9 Depression Total Score: 0 01/09/20 3:00 PM LITHOGRAPHER APPRENTICE documented as of this encounter Care Teams Crane Operator Cab Relationship Specialty Start Date End Date Jose Rosario MD [address] [facility] [address] [place] [address] PCP - General INTERNAL MEDICINE 12/01/19 04/12/24 Airam Jaramillo MD [address] [place] [address] DERMATOLOGY 02/06/21 documented as of this encounter
--- OUTSIDE RECORDS SUMMARY | 2024-05-26 16:08 | XMS_ITS | Encounter Summary ---
Author Organization [facility] Address [address] [place] [address] Care Team Providers Care Motor Coach Supervisor Name Role Phone Jose Rosario MD Primary Care Provider [phone] Airam Jaramillo MD Unavailable [phone] Encounter Details Date Type Department Care Team (Latest Contact Info) Description 11/29/2020 Nuvyyo Message Enc [facility] Multispecialty Care - [address] [address] [address] [place] [address] Jose Rosario MD [address] [facility] [address] [place] [address] RE: Follow Up/Update Social History Tobacco Use Types Packs/Day Years [...] have Coronavirus / COVID-19? No / Unsure 11/19/2020 10:57 AM CDT documented as of this encounter Functional Status * RETIRED Are you deaf or do you have serious difficulty hearing Answer Date of Assessment Author Status No 01/09/2020 3:11 PM FOUNDRY FINISHER Activ e documented as of this encounter Plan of Treatment Not on file documented as of this encounter Visit Diagnoses Not on filedocumented in this encounter Additional Health Concerns Assessment Noted Time PHQ-9 Depression Total Score: 0 01/09/20 20 3:00 PM FOUNDRY FINISHER documented as of this encounter Care Teams Motor Coach Supervisor Relationship Specialty Start Date End Date Jose Rosario MD [address] [facility] [address] [place] [address] PCP - General INTERNAL MEDICINE 12/01/19 04/12/24 Airam Jaramillo MD [address] [place] [address] DERMATOLOGY 02/06/21 documented as of this encounter
--- OUTSIDE RECORDS SUMMARY | 2024-05-26 16:08 | XMS_ITS | Clinical Summary ---
Author Organization [facility] Address [address] [place] [address] Care Team Providers Care Electrical Appliance Preparer Name Role Phone Nieves Morley DO Primary Care Provider + Allergies Active Allergy Reactions Criticality Noted Date Comments Cefdinir Hives,Rash Medium 06/09/2013 Cephalexin Hives,Rash High 06/09/2013 Latex Anaphylaxis High 11/22/2010 During a dental procedure. Morphine Nausea only Low 06/09/2013 Nitrofurantoin Hives,Rash Medium 09/22/2013 Penicillins Hives,Rash High 06/09/2013 Rosuvastatin Muscle pain,Nausea And Vomiting Medium 05/21/2020 Sulfa (Sulfonamide Antibiotics) Hives,Rash High 06/09/2013 Medications D-MANNOSE ORAL Take 2 capsules by mouth 3 times daily Active multivitamin with minerals tablet Take 2 tablets by mouth daily Active melatonin 5 mg tablet Take 2 tablets (10 mg total) by mouth nightly as needed 0 Active rOPINIRole (REQUIP) 1 mg tablet Take 1 tablet (1 mg total) by mouth nightly 4 Active zolpidem CR (AMBIEN CR) 6.25 mg CR tablet Take 2 tablets (12.5 mg total) by mouth nightly as needed 4 Active cetirizine (ZyrTEC) 10 mg tablet Take 1 tablet (10 mg total) by mouth daily Active triamcinolone (KENALOG) 0.1 % cream Apply 1 g topically 2 (two) times a day Active mupirocin (BACTROBAN) 2 % ointment APPLY TO RIGHT SHOULDER TWICE DAILY 4 Active Active Problems Problem Noted Date Diagnosed Date Restless leg 08/04/2023 Rash and other nonspecific skin eruption 024 Mixed hyperlipidemia 01/09/2020 Insomnia 12/06/2019 Arthritis 12/06/2019 Resolved Problems Problem Noted Date Diagnosed Date Resolved Date Lichen sclerosus et atrophicus 09/22/2013 08/04/2023 Overview (08/04/2023): 814: estrace cream, clobetasol prn Immunizations Immunization Administration Dates Next Due Influenza, Quadrivalent, Hig h Dose, Preservative Free, Intrr 12/06/2019 Influenza, Split 12/16/2010,11/21/2008 Influenza, Unspecified 11/16/2022(Deferr ed: Patient Refused),11/29/2020 Moderna SARS-CoV-2 Monovalen t Vaccination (12+ YRS) 12/10/2020,04/24/2020,03/27/2020 Pneumococcal Conjugate PCV 13 07/01/2018 Pneumococcal Polysaccharide PPV23 01/13/2020, Tdap 12/06/2019 ZOSTER Recombinant 11/12/2020,08/23/2020 Surgical History Surgery Date Site/Laterality Comments CHOLECYSTECTOMY 2005 HYSTERECTOMY 2009 Medical History Medical History Date Comments Insomnia Restless leg 08/04/2023 Mixed hyperlipidemia 01/09/2020 Lichen sclerosus et atrophicus 09/22/2013 F ormatting of this note might be different from the original. 814: estrace cream, clobetasol prn Family History Medical History Relation Name Comments No Known Problems Daughter 1 No Known Problems Daughter 2 Lung cancer Father Elias Lau smoker Lung cancer Sister Cindy Higginbotham Relation Name Status Comments Daughter 1 Alive Daughter 2 Alive Father Elias Lau Mother Sister Cindy Higginbotham Social History Tobacco Use Types Packs/Day Years Used Date Smoking Tobacco: Former Cigarettes 0.3 5.2 0 02/16/1973 - 02/16/1978 Smokeless Tobacco: Never AUDIT-C Answer Date Recorded Q1: How often do you have a drink containing alc ohol? Monthly or less 08/04/2023 Q2: How many drinks containi ng alcohol do you have on a typical day when you are drinking? 1 or 2 08/04/2023 Q3: How often do you have si x or more drinks on one occasion? Less than monthly 08/04/2023 PHQ-2 Answer Date Recorded PHQ-2 Total Score (If total score is 3 or more points, staff should administer the PHQ-9) 0 08/04/2023 Personal Safety Answer Date Recorded Getting School Help Needed Not on file 04/20 Comments Unknown Sex and Gender Information Value Date Recorded Sex Assigned at Not on file Legal Sex Female 9:52 AM CDT Gender Identity Female 07/28/2023 8:23 AM CDT Sexual Orientation Straight 07/28/2023 8: 23 AM CDT Obstetrics History Last Filed Vital Signs Vital Sign Reading Time Taken Comments Blood Pressure 112/70 08/04/2023 9:31 AM CDT Pulse 83 08/04/2023 9:31 AM CDT Temperature 36.8 C (98.3 F) 08/04/2023 9:31 AM CDT Respiratory Rate 16 08/04/2023 9:31 AM CDT Oxygen Saturation - - Inhaled Oxygen Concentration - - Weight 68.9 kg (152 lb) 11/17/2023 1:46 PM CDT Height 167.6 cm (5' 6 ) 11/17/2023 1:46 PM CDT Body Mass Index 24.53 11/17/2023 1:46 PM CDT Plan of Treatment Health Maintenance Due Date Last Done Comments Colon Cancer Screening-Colonoscopy 1950 Hepatitis C Screening 1950 Hepatitis B Screening 1970 Well Visit 65+ 2017 Osteoporosis Screening-Bone Density Scan 01/30/2022 01/31/2020 Breast Cancer Screening-Mammogram 01/31/2022 01/31/2021, 01/31/2021, 01/31/2020 Covid-19 Vaccine (2023-2 5 season) 2023 12/10/2020, 04/24/2020, 03/27/2020 Influenza Vaccine (#1) 2023 , 12/06/2019, 12/16/2010, Additional history exists Depression Screening 08/03/2024 08/04/2023 Fall Risk Assessment 08/03/2024 08/04/2023 DTaP/Tdap/Td Vaccine (2 - Td or Tdap) 12/05/2029 12/06/2019 Pneumococcal vaccine 65+ Completed 020, 12/06/2019, 07/01/2018 Zoster Vaccine Completed 11/12/2020, 08/23/2020 Insurance MEDICARE [facility] MEDICARE [employer] [place] Care Teams Electrical Appliance Preparer Relationship Specialty Start Date End Date Nieves Morley DO [address] [place] [address] DR STANLEY [address] [place] [address] PCP - General Family Medicine 08/04/23
--- OUTSIDE RECORDS SUMMARY | 2024-05-26 16:08 | XMS_ITS | Clinical Summary ---
Author Organization [facility] Address [address] [place] [address] Phone Care Team Providers Care Cell Operation Supervisor Name Role Phone Tim Ruff MD Primary Care Provider + Allergies Active Allergy Reactions Criticality Noted Date Comments Cephalexin Hives High 06/09/2013 Latex Anaphylaxis 11/22/2010 During a dental procedure. Morphine Nausea 06/09/2013 Nitrofurantoin Hives 09/22/2013 Cefdinir Hives 06/09/2013 Penicillins Hives High 06/09/2013 Sulfa Antibiotics Hives High 06/09/2013 Medications LORazepam (ATIVAN PO)Indications:Ruben dder pain,Myalgia and myositis, unspecified Take 1 Tab by mouth nightly as needed. Active clobetasol 0.05 % EX CREAIndications:Va ginal irritation,Atrophi c vulvovaginitis Apply a pea size amount of cream to vulva daily. 60 g 0 06/10/19 14 Active Additional Information Patient not taking.Reported on 08/17/2017 estradiol (ESTRACE VAGINAL) 0.1 MG/GM VA CREAIndications:Va ginal irritation,Atrophi c vulvovaginitis Apply 1-2 g by vaginal route twice weekly at night. 42.5 g 11 06/10/19 14 Active Additional Information Patient not taking.Reported on 08/17/2017 estradiol (ESTRACE VAGINAL) 0.1 MG/GM VA CREAIndications:Va ginal irritation,Atrophi c vulvovaginitis Apply 1-2 g by vaginal route twice weekly at night. 42.5 g 0 06/10/19 14 Active Ciprofloxacin (CIPRO PO) Take by mouth. Acti ve predniSONE (DELTASONE) 20 MG Tablet TK 2 TS PO D 0 11/16/19 18 Active triamcinolone (KENALOG) 0.1 % Cream ARPITA AA TID FOR 7 DAYS 1 11/16/19 18 Active Multiple Vitamin (MULTI-VITAMIN PO)Indications:Zym ex 8445, Kavinace, L-Theanine, Adrenive Take 2 Tabs by mouth 3 times daily (with meals). Active Active Problems Problem Noted Date Diagnosed Date Recurrent UTI 09/22/2013 Overview (09/22/2013): 09/29: estrace and dmannose (patient is asymptomatic) Lichen sclerosus et atrophicus 09/22/2013 Overview (09/22/2013): 814: estrace cream, clobetasol prn Social History Tobacco Use Types Packs/Day Years Used Date Smoking Tobacco: Former Cigarettes Smokeless Tobacco: Never Tobacco Cessation:Counseling Given: No Alcohol Use Standard Drinks/Week Comments Yes 0 (1 standard drink = 0.6 oz pur e alcohol) Sexually Active Control Partners Comments Not Currently Comments No Sex and Gender Information Value Date Recorded Sex Assigned at Not on file Legal Sex Female 2:44 AM TICKET WRITER Gender Identity Not on file Sexual Orientation Not on file Last Filed Vital Signs Vital Sign Reading Time Taken Comments Blood Pressure 110/64 02/05/2018 9:48 AM TICKET WRITER Pulse 64 02/05/2018 9:48 AM TICKET WRITER Temperature - - Respiratory Rate 18 02/05/2018 9:48 AM TICKET WRITER Oxygen Saturation - - Inhaled Oxygen Concentration - - Weight 63.5 kg (140 lb) 02/05/2018 9:48 AM TICKET WRITER Height 167.6 cm (5' 6 ) 02/05/2018 9:48 AM TICKET WRITER Body Mass Index 22.6 02/05/2018 9:48 AM TICKET WRITER Plan of Treatment Health Maintenance Due Date Last Done Comments DEXA Bone Density 1950 Hepatitis C Virus (HCV) Screening 1950 TdaP Immunization 1950 Colonoscopy 1997 Colorectal Cancer Screening 1997 Cologuard 2002 Immunochemical Fecal Occult Blood 2002 Mammogram 2002 Pneumococcal Immunization (5 0+ years) (1 of 1 - PCV) 2002 Zoster Immunization (1 of 2) 2002 Influenza Immunization (#1) 2023 SARS-COV-2 Immunization (3 - 2023- season) 2023 07/01/2021, 12/10/2020 Respiratory Syncytial Virus (RSV) Immunization (Adult) (1 - 1-dose 75+ series) 07/20/2027 Hepatitis B Immunization Aged Out No longer eligible based on patient's age to complete this topic Meningococcal Immunization (ACWY) Aged Out No longer eligible b ased on patient's age to complete this topic Rotavirus Immunization Aged Out No lo nger eligible based on patient's age to complete this [place] [address] [facility] Care Teams Cell Operation Supervisor Relationship Specialty Start Date End Date Tim Ruff MD [address] [place] [address] PCP - General Family Medicine 08/17/17
--- OUTSIDE RECORDS SUMMARY | 2024-05-26 16:08 | XMS_ITS | Encounter Summary ---
Author Organization [facility] Address [address] [place] [address] Care Team Providers Care Animal Science Professor Name Role Phone Jose Rosario MD Primary Care Provider [phone] Airam Jaramillo MD Unavailable [phone] Encounter Details Date Type Department Care Team (Latest Contact Info) Description 08/27/2020 WealthToucht Message Enc [facility] Medical Group Multispecialty Care - [address] [address] [address] [place], [place] [id number] [place] [address] [place] [address] [address] [place] [address] RE:follow up visit Social History Tobacco Use Types Packs/Day Years [...] on file Sexual Orientation Not on file documented as of this encounter Functional Status * RETIRED Are you deaf or do you have serious difficulty hearing Answer Date of Assessment Author Status No 01/09/2020 3:11 PM NATURALIST Activ e documented as of this encounter Plan of Treatment Not on file documented as of this encounter Visit Diagnoses Not on filedocumented in this encounter Additional Health Concerns Assessment Noted Time PHQ-9 Depression Total Score: 0 01/09/20 20 3:00 PM NATURALIST documented as of this encounter Care Teams Animal Science Professor Relationship Specialty Start Date End Date Jose Rosario MD [address] [facility] [address] [place] [address] PCP - General INTERNAL MEDICINE 12/01/19 04/12/24 Airam Jaramillo MD [address] [place] [address] DERMATOLOGY 02/06/21 documented as of this encounter
--- OUTSIDE RECORDS SUMMARY | 2024-05-26 16:08 | XMS_ITS | Encounter Summary ---
Author Organization [facility] Address [address] [place] [address] Care Team Providers Care Flame Hardening Machine Setter Name Role Phone Jose Rosario MD Primary Care Provider [phone] Airam Jaramillo MD Unavailable [phone] Encounter Details Date Type Department Care Team (Late st Contact Info) Description 11/21/2020 Doubles Alleyt Message Enc [facility] Medical Group Multispecialty Care - [address] [address] [address] [place], [place] [phone] [place] [address] [place] [address] [address] [place] [address] medication name Social History Tobacco Use Types Packs/Day Years [...] Assessment Author Status No 01/09/2020 3:11 PM BULK GAS SPECIALIST Activ e documented as of this encounter Plan of Treatment Not on file documented as of this encounter Visit Diagnoses Not on filedocumented in this encounter Additional Health Concerns Assessment Noted Time PHQ-9 Depression Total Score: 0 01/09/20 3:00 PM BULK GAS SPECIALIST documented as of this encounter Care Teams Flame Hardening Machine Setter Relationship Specialty Start Date End Date Jose Rosario MD [address] [facility] [address] [place] [address] PCP - General INTERNAL MEDICINE 12/01/19 04/12/24 Airam Jaramillo MD [address] [place] [address] DERMATOLOGY 02/06/21 documented as of this encounter
--- OUTSIDE RECORDS SUMMARY | 2024-05-26 16:08 | XMS_ITS | Clinical Summary ---
Author Organization [facility] Address [facility] [place] [address] Care Team Providers Care Building Rental Superintendent Name Role Phone Airam Jaramillo MD Unavailable [phone] Allergies Active Allergy Reactions Criticality Noted Date Comments Cefdinir Rash Low 06/09/2013 Cephalexin Rash High 06/09/2013 Latex Anaphylaxis High 11/22/2010 During a dental procedure. Morphine Nausea Only 06/09/2013 Nitrofurantoin Rash Low 09/22/2013 Penicillins Rash High 06/09/2013 Rosuvastatin Nausea and Vomiting,Myalgias 05/21/2020 Sulfa Antibiotics Rash High 06/09/2013 Medications Multiple Vitamins-Minera ls (MULTIVITAMIN ADULT OR)Indications: Osteoarthritis of spine with radiculopathy, cervical region Take 2 tablets by mouth. Active melatonin 5 MG tabletIndicatio ns:Primary insomnia Take 2 tablets (10 mg total) by mouth nightly as needed. 30 tablet 0 Active fish oil 1000 MG Cap capsule Take 1,000 mg by mouth 2 (two) times daily. Active D-MANNOSE OR Take 2 capsules by mouth 3 (three) times daily with meals. Active diphenhydrAMINE 25 MG capsule Take 25 mg by mouth every 6 (six) hours as needed for Itching. Active diclofenac sodium 1 % gelIndications: Arthritis Apply 4 g topically 4 (four) times daily. 100 g 1 2 Active traZODone 100 MG tabletIndicatio ns:Primary insomnia Take 1 tablet (100 mg total) by mouth nightly at bedtime. 90 tablet 1 2 Active Active Problems Problem Noted Date Diagnosed Date Mixed hyperlipidemia 01/09/2020 Arthritis 12/06/2019 Insomnia 12/06/2019 Interstitial cystitis 12/06/2019 Immunizations Name Administration Dates Next Due COVID-19 Vaccine (Generic) 04/24/2020,03/27/2020 Fluzone High Dose - >Age 65 (Prefilled Syringe) 12/06/2019 Influenza Adult (Generic) 11/29/2020 MODERNA COVID-19 (12+) MRNA, LNP-S, PF, 100 MCG/ 0.5 ML DOSE 12/10/2020 Pneumococcal (Pneumovax 23) 12/06/2019 Pneumococcal (Prevnar 13) 07/01/2018 Shingrix 11/12/2020,08/23/2020 Tdap (Historical Only-select from PersistIQify glass) 12/06/2019 Family History Medical History Relation Comments Cancer Father Lung Cancer Father Stroke Maternal Grandfather No Known Problems Mother Cancer Sister Lung Cancer Sister Relation Status Comments Father Maternal Grandfather Mother Sister Social History Tobacco Use Types Packs/Day Years Used Date Smoking Tobacco: Former Cigarettes Smokeless Tobacco: Never Tobacco Cessation:Counseling Given: Yes Comments:counseled to avoid smoking by Dr Rosario Alcohol Use Standard Drinks/Week Comments Yes 5 (1 standard drink = 0.6 oz pur e alcohol) PHQ-2 Answer Date Recorded PHQ-2 Score - If the patient scores above 3, please move on to questions 3-9 0 06/11/2021 Comments No Sex and Gender Information Value Date Recorded Sex Assigned at Not on file Legal Sex Female 10:23 AM CDT Gender Identity Not on file Sexual Orientation Not on file Last Filed Vital Signs Vital Sign Reading Time Taken Comments Blood Pressure 100/71 07/09/2021 8:15 AM CDT Pulse 86 07/09/2021 8:15 AM CDT Temperature 37.1 C (98.7 F) 07/09/2021 8:15 AM CDT Respiratory Rate 18 07/09/2021 8:15 AM CDT Oxygen Saturation 98% 07/09/2021 8:15 AM CDT Inhaled Oxygen Concentration - - Weight 66.5 kg (146 lb 9.6 oz) 07/09/2021 8:15 A M CDT Height 167.6 cm (5' 6 ) 07/09/2021 8:15 AM CDT Body Mass Index 23.66 07/09/2021 8:15 AM CDT Plan of Treatment Health Maintenance Due Date Last Done Comments Annual Medicare Wellness Visit 02/07/2022 02/06/2021 Mammogram Screening 01/31/2023 01/31/2021, 01/31/2020 Colorectal Cancer Screening FIT-DNA (3 Years) 06/09/2023 06/08/2020 COVID-19 Vaccine (4 - 2023-2 5 season) 2023 12/10/2020, 04/24/2020, 03/27/2020 PHQ-2 (Physician [place]) 02/17/2024 RSV Immunization or 60+ Years (1 - 1-dose 75+ series) 07/20/2027 DTaP, Tdap and Td Vaccines ( 2 - Td or Tdap) 12/05/2029 12/06/2019 Colorectal Cancer Screening Colonoscopy (10 Years) Discontinued 07/08/2010 Pneumococcal Vaccine: 65+ Years Completed 12/06/2019, 07/01/2018 Hepatitis C Completed 01/09/2020 Dexa Scan (General) Completed 01/31/2020 Zoster Vaccines Completed 11/12/2020, 08/23/2020 Meningococcal B Vaccine Aged Out No l onger eligible based on patient's age to complete this topic Meningococcal Vaccine Aged Out No shawn sydnee eligible based on patient's age to complete this topic RSV Immunizations Under 20 Months Aged Out No longer eligible based on patient's age to complete this topic Procedures Procedure Name Priority Date/Time Associated Diagnosis Comments MG SCREENING W JAMESON GABRIELLA DIGI Routine 01/31/2021 9:56 AM WEB SITE ADMIN Encounter for screening mammogram for malignant neoplasm of breast COLOGUARD (EXACT SCIENCE) Routine 06/08/2020 8:30 AM CDT Colon cancer screening BONE DENSITY/DEXA Routine 01/31/2020 3:0 0 PM WEB SITE ADMIN Asymptomatic premature menopause HEPATITIS C ANTIBODY Routine 01/09/2020 3:03 PM WEB SITE ADMIN Encounter for hepatitis C screening test for low risk patient COLONOSCOPY/EGD GENERIC (SCAN ORDER) 07/08/2010 from Last 3 Months or Most Recently Relevant to Health Maintenance Results * MG SCREENING W JAMESON GABRIELLA DIGI (01/31/2021 9:56 AM WEB SITE ADMIN) Anatomical Region Laterality Modality Breast Bilateral Mammography 01/31/2021 10:2 4 AM WEB SITE ADMIN Impressions 01/31/2021 10:24 AM WEB SITE ADMIN =====IMPRESSION:===== No mammographic findings suggestive of malignancy ASSESSMENT: ACR BI-RADS 2 - BENIGN FINDING(S) Recommendation: 1: Routine Screening Bilateral COMMENTS: Ordered By: JOSE ROSARIO Interpreted By: Wallace Sesay MD, 01/31/2021 10:24 AM Narrative 01/31/2021 10:24 AM WEB SITE ADMIN EXAMINATION: Digital bilateral screening mammogram with 3-D tomosynthesis EXAM DATE/TIME: 01/31/2021 9:42 AM REASON FOR EXAM: screening COMPARISON: September 2017, October 2018, January 2020 TECHNIQUE: Digital screening mammography of both breasts was performed in addition to 3-D Tomosynthesis technique. This study was read with the assistance of a computer-aided detection system. TISSUE DENSITY: There are scattered areas of fibroglandular density. FINDINGS: No suspicious masses, malignant appearing calcifications, skin thickening or other abnormalities are present. No significant change from the prior exam. Jose Rosario MD MAMMO Final Result * COLOGUARD ([place]) (06/08/2020 8:30 AM CDT) COLOGUARD RESULT Negative Not Applicable [facility] (CLIA #:[id number]) Comment: A negative result indicates a low likelihood that a colorectal cancer (CRC) or an advanced adenoma (adenomatous polyps with more advanced pre-malignant features) is present. The chance that a person with a negative Cologuard test has a colorectal cancer is less than 1 in 1500 (negative predictive value >99.9%) or has an advanced adenoma is less than 5.3% (negative predictive value 94.7%). These data are based on a prospective cross-sectional screening study of 10,000 individuals at average risk for colorectal cancer who were screened with both Cologuard and colonoscopy. (Henry Brooks al, N Engl J Med 2014;370(14):2748-6364) The normal value (reference range) for this assay is negative. COLOGUARD RE-SCREENING RECOMMENDATION: Periodic routine colorectal cancer screening is an important part of preventive healthcare for asymptomatic persons at average risk for colorectal cancer. Following a negative Cologuard result, the [place] Cancer Society and U.S. Multi-Society Task Force screening guidelines recommend a Cologuard re-screening interval of 3 years. References: [place] Cancer Society (ACS). Colorectal cancer prevention and early detection. [place], [place]: [place] [employer] Society; [updated 2015Jun 09]. https://www.cancer.org/cancer/looin-gwwfwa-ftuhqj/rfcocwdkz-qbusxdsbw-ayfzdyj/ac s-rec ommendations.html. Accessed October 16, 2017; Hammad DK, Kisha WING, Magalys SealsK, Colorectal Cancer Screening: Recommendations for Physicians and Patients from the U.S. Multi-Society Task Force on Colorectal Cancer Screening, Am J Gastroenterology 2017; 112:4906-9957. TEST TYPE: Composite algorithmic analysis of stool DNA-biomarkers with hemoglobin immunoassay. Quantitative values of individual biomarkers are not reportable and are not associated with individual biomarker result reference ranges. PRECAUTIONS AND LIMITATIONS: Cologuard is intended for colorectal cancer screening of adults of either sex, 45 years or older, who are at average-risk for colorectal cancer (CRC). Cologuard has been approved for use by the U.S. FDA. Cologuard may produce a false negative or false positive result. A negative Cologuard test result does not guarantee the absence of CRC or advanced adenoma (pre-cancer). Patients with a negative Cologuard test result should be advised to continue participating in a colorectal cancer screening program. The screening interval for Cologuard is currently recommended at an interval of every 3 years by the [place] Cancer Society and U.S. Multi-Society Task Force. A false positive result occurs when Cologuard produces a positive result, even though a colonoscopy may not find colorectal cancer or precancerous polyps. The performance of Cologuard has been established in a cross sectional study (i.e., single point in time) of average-risk adults aged 50-84. Cologuard performance in patients ages 45 to 49 years was estimated by sub-group analysis of near-age groups. Cologuard performance data in a 10,000 patient pivotal study using colonoscopy as the reference method can be accessed at the following location: www.Hobobe.5Rocks/results. Additional description of the Cologuard test process, warnings and precautions can be found at www.cologuardtest.com. Rx only. Stool specimen (specimen) STOOL SPECIMEN / Unknown 06/08/2020 8:30 AM CDT 06/09/2020 3:02 PM CDT Jose Rosario MD BODY FLUIDS AND STOOLS ORDERABLE S Final Result [facility] ([employer] [facility]) [address] [place] [address], [facility] (CLIA #:[id number]) [address] [place] [address] * BONE DENSITY/DEXA (01/31/2020 3:00 PM WEB SITE ADMIN) Anatomical Region Laterality Modality Bone Mammography 01/31/2020 7:52 PM WEB SITE ADMIN Impressions 01/31/2020 7:53 PM WEB SITE ADMIN IMPRESSION: WHO Classification: osteopenia. FRAX: 1.4% chance of hip fracture and 9.4% chance of major osteoporotic fracture over the next 10 years. Interpreted By: Farrukh Del Valle MD, 01/31/2020 7:52 PM Narrative 01/31/2020 7:53 PM WEB SITE ADMIN Examination: Bone Density Axial Exam Date/Time: 01/31/2020 2:30 PM Reason For Exam: Postmenopausal Comparison: None Findings: DEXA bone densitometry The bone mineral density (BMD) was determined by dual-energy x-ray absorptiometry, the results are as follows: AP Lumbar Spine L1 through L4 BMD Patient (GM/SQCM): 0.867 T-Score (Standard deviations from young adult peak bone density): -1.6 Right femoral neck: BMD Patient (GM/SQCM): 0.648 T-Score (Standard deviations from young adult peak bone density): -1.8 Total Right femur: BMD Patient (GM/SQCM): 0.801 T-Score (Standard deviations from young adult peak bone density): -1.2 Recommendations: All patients should ensure an adequate intake of dietary calcium and vitamin D. The NOF recommend adults under the age of 50 need 1000 mg of calcium and 400-800 IU of vitamin D daily. Effective therapy for the prevention and treatment of osteoporosis include biphosphonates. Follow-up: People with diagnosed cases of osteoporosis or at high risk for fracture should have regular bone mineral density test. For patients eligible for Medicare, routine testing is allowed once every 2 years. Testing frequency can be increased to one year for patients who have rapidly progressing disease, those who are receiving or discontinuing medical therapy to restore bone mass, or have additional risk factors. Procedure Note Farrukh Del Valle MD - 01/31/2020 Examination: Bone Density Axial Exam Date/Time: 01/31/2020 2:30 PM Reason For Exam: Postmenopausal Comparison: None Findings: DEXA bone densitometry The bone mineral density (BMD) was determined bydual-energy x-ray absorptiometry, the results are as follows: AP Lumbar Spine L1 through L4 BMD Patient (GM/SQCM): 0.867 T-Score (Standard deviations from young adult peak bonedensity): -1.6 Right femoral neck: BMD Patient (GM/SQCM): 0.648 T-Score (Standard deviations from young adult peak bonedensity): -1.8 Total Right femur: BMD Patient (GM/SQCM): 0.801 T-Score (Standard deviations from young adult peak bonedensity): -1.2 Recommendations: All patients should ensure an adequate intake of dietary calcium andvitamin D. The NOF recommend adults under the age of 50 need 1000 mg ofcalcium and 400-800 IU of vitamin D daily. Effective therapy for theprevention and treatment of osteoporosis include biphosphonates. Follow-up: People with diagnosed cases of osteoporosis or at high risk for fractureshould have regular bone mineral density test. For patients eligible forMedicare, routine testing is allowed once every 2 years. Testing frequencycan be increased to one year for patients who have rapidly progressingdisease, those who are receiving or discontinuing medical therapy torestore bone mass, or have additional risk factors. IMPRESSION: WHO Classification: osteopenia. FRAX: 1.4% chance of hip fracture and 9.4% chance of major osteoporoticfracture over the next 10 years. Interpreted By: Farrukh Del Valle MD, 01/31/2020 7:52 PM us Jose Rosario MD DEXA Final Result * HEPATITIS C ANTIBODY (01/09/2020 3:03 PM WEB SITE ADMIN) HEPATITIS C AB NON-REACTI VE NON-REACT DELFINA 01/09/2020 9:53 PM WEB SITE ADMIN [facility] Comment: ANTIBODIES TO HCV NOT DETECTED. DOES NOT EXCLUDE THE POSSIBILITY OF EXPOSURE TO HCV. 01/09/2020 3:03 PM WEB SITE ADMIN us Jose Rosario MD LABORATORY Final Result [facility] [address] [place] [address], [id number] * COLONOSCOPY/EGD GENERIC (07/08/2010) 07/08/2010 Narrative 07/08/2010 Ordered by an unspecified provider. us Documents Scanned SCANNING Final Result from Last 3 Months or Most Recently Relevant to Health Maintenance Insurance MEDICARE [employer] Care Teams Building Rental Superintendent Relationship Specialty Start Date End Date Airam Jaramillo MD [address] [place] [address] DERMATOLOGY 02/06/21
--- OUTSIDE RECORDS SUMMARY | 2024-05-26 16:08 | XMS_ITS | Encounter Summary ---
Author Organization [facility] Address [address] [place] [address] Care Team Providers Care Telesales Advisor Name Role Phone Jose Rosario MD Primary Care Provider [phone] Airam Jaramillo MD Unavailable [phone] Encounter Details Date Type Department Care Team (Latest Contact Info) Description 03/27/2020 WebCurfewt Message Enc [facility] Medical Group Multispecialty Care - [address] [address] [address] [place], [place] [id number] Jose Rosario MD [address] [facility] [address] [place] [address] Covid vaccination Social History Tobacco Use Types Packs/Day Years [...] Assessment Author Status No 01/09/2020 3:11 PM CORPORATE BANKING OFFICER Activ e documented as of this encounter Plan of Treatment Not on file documented as of this encounter Visit Diagnoses Not on filedocumented in this encounter Additional Health Concerns Assessment Noted Time PHQ-9 Depression Total Score: 0 01/09/20 20 3:00 PM CORPORATE BANKING OFFICER documented as of this encounter Care Teams Telesales Advisor Relationship Specialty Start Date End Date Jose Rosario MD [address] [facility] [address] [place] [address] PCP - General INTERNAL MEDICINE 12/01/19 04/12/24 Airam Jaramillo MD [address] [place] [address] DERMATOLOGY 02/06/21 documented as of this encounter
--- OUTSIDE RECORDS SUMMARY | 2024-05-26 16:08 | XMS_ITS | Referral Summary ---
Author Organization [facility] Address [address] [place] [address] Care Team Providers Care Horse Groomer Name Role Phone Nieves Morley DO Primary [...] [id number] 01/13/2020, Tdap 12/06/2019 ZOSTER Recombinant 11/12/2020,08/23/2020 Social History Tobacco Use Types Packs/Day Years [...] Orientation Straight 07/28/2023 8: 23 AM CDT Last Filed Vital Signs Vital Sign Reading [...] 11/17/2023 1:46 PM CDT Plan of Treatment [place] [address] MEDICARE [facility] Address: [facility] [address] [place] [address] [facility] MEDICARE [facility]YSICIANS [facility] [place] Care Teams Horse Groomer Relationship Specialty Start Date End Date Nieves Morley DO [facility] [facility] [place] [address] PCP - General Family Medicine 08/04/23
--- OUTSIDE RECORDS SUMMARY | 2024-05-26 16:08 | XMS_ITS | Patient Health Record ---
Author Organization [facility] Address [address] [place] [id number] Care Team Providers Care Resident Manager Name Role Phone ANDREW BOBO Primary Care Provider [phone] Allergies Allergen (clinical drug ingredient) Drug/Non Drug Allergy documented on EMR Reaction Allergy Type Onset Date Status Sulfa (uncoded) pruritic maculopapular rash Allergy Active Omnicef hives Drug Allergy Active nitrofurantoin nitrofurantoin rash on legs Drug Allergy Active penicillin nausea Drug Allergy Active morphine morphine nausea with prolonged sedation Drug Allergy Active Reason For Referral No Information Medications Medication SIG (Take, Route, Frequency, Duration) Notes Start Date End Date Status LORazepam 0.5 mg TAKE 1 TABLET BY MORELIA TH AT BEDTIME for 15 Active traZODone 100 1 tab(s) orally once a day (at bedtime) PRN sleep for 30 Not-Taking Oxybutynin Chloride 5 mg 1 tab(s) orally bid for 30 day(s) 02/22/2019 Active Immunizations Vaccine Route Administration Date Status Comme nts Influenza IM Intramuscular 11/21/2008 Administered Influenza IM Intramuscular 12/16/2010 Administered Pneumovax 23 Unknown 01/13/2020 Administered Prevnar 13 IM Intramuscular 07/01/2018 Administered Social History Tobacco Use: Social History Observation Description Date Details (start date - stop date) Former Smoker NA - NA Tobacco Use: Question Answer Notes Are you a: former smoker How long has it been since y ou last smoked? > 10 years for a few years when in 20's Are you an other tobacco user? No Alcohol Screening: Question Answer Notes Did you have a drink contain ing alcohol in the past year? Yes How often did you have a dri nk containing alcohol in the past year? Two to four times a month (2 points) How many drinks did you have on a typical day when you were drinking in the past year? 1 or 2 (0 points) How often did you have six o r more drinks on one occasion in the past year? Never (0 points) Points 2 Interpretation Negative Section Notes: works at [employer] tobacco. frequent alcohol. Problems Problem Type SNOMED Code ICD Code Onset Dates Problem Status W/U Status Risk Notes Problem 27796970 Anxiety (F41.9) Active confirmed Problem Vitamin D deficiency (18078968) Vitamin D deficiency (E55.9) Active confirmed Problem 591172381 Elevated fasting blood sugar (R73.01) Active confirmed Problem Menopause (516856790) Menopause (Z78.0) Active confirmed Problem 69827704 Hypercholesterol emia (E78.0) Active confirmed Problem Chronic interstitial cystitis (592740297) Interstitial cystitis (N30.10) Active confirmed Problem 7907443 Primary insomnia (F51.01) Active confirmed Problem Hyperlipidemia (67216917) Hyperlipidemia (E78.5) Active confirmed Problem Anxiety (50566877) Anxiety (F41.9) Active confirmed Problem Allergic rhinitis (76484711) Allergic rhinitis (J30.9) Active confirmed Problem 391728199 History of anxie ty (Z86.59) Active confirmed Plan Of Treatment No Information Medications Administered Medication Instructions Date of Administration Dosage Notes Decadron 1mg (6units) 09/11/2013 6 mg Gentamicin 80mg (1.5 units) 09/01/2013 120 mg Gentamicin 80mg (1.5 units) 09/01/2013 120 mg Gentamicin 80mg (3 units) 02/17/2009 240 gentamycin 120 m g given rt and lt gleutal Gentamicin 80mg (3 units) 09/11/2013 240 mg divided in 2 dos es Lt and Rt Kenalog 10mg (6units) 01/08/2010 60 mg Kenalog 10mg (6units) 09/11/2013 60 mg giv en 1 shot with Decadron per Krissy Vaughn Kenalog 10mg (6units) 05/22/2014 60 mg Kenalog 10mg (6units) 03/04/2015 60 mg Pat ient tolerated well. SoluMedrol 125mg 01/29/2010 Medical (General) History Medical History History ICD Code Anxiety Hypercholestereolemia Allergic rhinitis Vitamin D deficiency Endometriosis Menopausal Recurrent UTI Lif[facility] screen - 10/2013 - good results Rotator cuff dysfunction History of tobacco use Last Mammogram:10/2018 Last Pap:unk Last Tetanus Injection:unk Last Flu Injection:not sure Surgical History Surgery Date(Month/Year) Lap cholecystectomy - Dr Thomson 08/02/2010 EGD - Colonoscopy, Dr Thomson 07/08/2010 Lysis of adhesions x 2 Laparoscopy with oophorectomy Total hysterectomy - endometriosis Laproscopy for endometriosis x 2 Hospitalization History Reason Date(Month/Year) See Surgical History
== END 2024-05-26 16:04 | disposition home or self-care (01) ==
PROVIDERS: PCP Family Medicine; Visit Provider Family Medicine
DX: Z12.31 Encounter for screening mammogram for malignant neoplasm of breast (principal)
CPT/HCPCS: 77063; 77067

== ENCOUNTER 2024-06-10 17:59 | Emergency (ER) | payer MEDICARE, OTHER, SELFPAY ==
--- NOTE | 2024-06-10 18:01 | ED.SKABFB ---
HPI - Skin/Abscess/Foreign Bdy General Chief complaint: Skin/Abscess/Foreign Body Stated complaint: SORE UNDER L ARM Time Seen by Provider: 06/10/24 18:08 Source: patient and RN notes reviewed Mode of arrival: ambulatory Limitations: no limitations History of Present Illness HPI narrative: 73-year-old female presents with concern for and itchy irritated area near her left axilla. She reports it has been there about 2 weeks. Reports it was itchy at 1st and now stings. She has not put anything on it. She says it is not gotten any larger spread anywhere else. complaint: rash Related Data Home Medications ?Medication ?Instructions ?Recorded ?Confirmed ?Last Taken ?Type multivitamin (Daily Multi-Vitamin 1 tablet PO DAILY 10/18/21 06/10/24 Unknown History tablet) cranberry 500 mg capsule 500 mg PO DAILY 11/06/21 06/10/24 Unknown History cetirizine 10 mg tablet (Zyrtec) 10 mg PO DAILY PRN Allergic 09/15/22 06/10/24 Unknown History Symptoms melatonin 10 mg capsule 5 mg PO QHS 11/19/23 06/10/24 Unknown History zolpidem 5 mg tablet (Ambien) 2.5 mg PO QHS 06/10/24 06/10/24 Unknown History Allergies Allergy/AdvReac Type Severity Reaction Status Date / Time Penicillins Allergy Unknown Hives Verified 06/10/24 18:05 Sulfa (Sulfonamide Allergy Unknown Hives Verified 06/10/24 18:05 Antibiotics) Inhaled Anesthetics (Halogen AdvReac Severe Nausea and Verified 06/10/24 18:05 Based) Vomiting trazodone AdvReac Mild Palpitation Uncoded 06/10/24 18:05 s Review of Systems Review of Systems: CONSTITUTIONAL: Denies malaise, chills, sweats, or fever. EYES: Denies redness, or discharge. ENT: Denies rhinorrhea, congestion, swollen lips, swollen tongue CARDIOVASCULAR: Denies chest pain, palpitations, or edema. RESPIRATORY: Denies cough or dyspnea. GASTROINTESTINAL: Denies abdominal pain, nausea, vomiting SKIN: Reports rash near her left axilla MUSCULOSKELETAL: Denies joint pain or myalgia. NEUROLOGIC: Denies headache. All systems reviewed & are unremarkable except as noted in HPI and below PMFSH Past Medical History Medical History Interstitial cystitis Surgical History Surgical History History of hysterectomy Hx of cholecystectomy Family History Family History Other Alcohol abuse Father Lung cancer Sibling Lung cancer Social History Social History Smoking status: Never smoker Alcohol intake: current Drinks per week: 3 Alcohol use details: Beer/Wine Substance use: never Substance use type: does not use Lack of Transportation: No Lack of Food: Never True Current Housing: I Have Housing Concerned About Future Housing: No Difficulty Paying Gas/Electric Bills: No Difficulty Paying for Meds: No Currently Unemployed: No Education: Bachelor's Degree Difficulty w/ Childcare or Family Care: No Living arrangements: with family Additional living arrangements comments: Occupation/Education: retired Gender identity (if verbalized by the patient): Female Sexual Orientation (if Verbalized by the Patient): Straight or Heterosexual Agree to blood products: Yes Comments At time of signature, agree with nursing past medical, surgical, social and family history. There is no relevant family history pertinent to the presenting complaint Exam Narrative: GENERAL: Well-appearing, well-nourished, and in no acute distress. HEAD: Normocephalic, atraumatic. EYES: PERRLA, conjunctivae clear, and EOMI. ENT: Mucous membranes moist. Oropharynx without edema, erythema or lesions. NECK: Supple. No lymphadenopathy CHEST: Clear to auscultation. No respiratory distress. HEART: Regular rate and rhythm. SKIN: Warm, dry. Approximately she 2 cm in diameter irregular slightly raised patch of erythematous plaque noted in the left axilla NEURO: Alert and oriented x3. PSYCH: Normal mood and affect Course Course Emergency Course: Patient is aware of diagnosis, understands and agrees to treatment plan. Anticipatory guidance given. Patient agrees to follow-up as directed and is aware of reasons to seek care at the emergency department. Portions of this record may have been created with voice recognition software Level of Care: Express Care Visit Vital Signs Vital signs: Reviewed. MDM - Skin/Abscess/Foreign Bdy MDM Narrative Medical decision making narrative: Does not appear at this time to be erythema multiforme, bullous, SJS, TEN; no evidence at this time to suggest RMSF, endocarditis or Lyme disease; patient looks well, nontoxic and is tolerating oral intake; no neurologic signs or symptoms; no headache, photophobia or neck pain; afebrile; appropriate for initial outpatient treatment; discussed the importance of follow-up, patient agrees; question, viral exanthema, contact dermatitis, allergic dermatitis, eczema, urticaria, tinea. No soft palate or uvula edema, no tongue, lip edema or other mucosal involvement, no respiratory compromise, no stridor, no wheezing, no wheezing, no history of syncope, no hypotension, no nausea, vomiting, or diarrhea. Instructed patient to go to nearest ER immediately for any worsening symptoms including but not limited to: fever, spreading rash, pain, sore throat, headache, dizziness, chest pain, trouble breathing, or any symptoms concerning to the patient. Critical Care Time Critical Care Time Critical Care Time: No Discharge Plan Discharge Clinical Impression: Rash Patient Disposition: Home Condition: Stable Instructions: Acute Rash (ED) Additional Instructions: Wash the area with gentle soap and water only. Use skin cream as prescribed Avoid scratching when possible to prevent worsening of the condition and disruption of the skin that could lead to bacterial infection To relieve itching, place a cool washcloth or some ice over the area that itches, rather than scratching Follow up with primary care provider or seek ER if you have trouble breathing, become hoarse, or start wheezing, develop belly cramps, vomiting or feel dizzy. Patient Language: Telugu Prescriptions: New clotrimazole-betamethasone 1-0.05 % cream 1 applic TOPICAL BID 28 Days Qty: 45 1RF No Action zolpidem [Ambien] 5 mg tablet 2.5 mg PO QHS multivitamin [Daily Multi-Vitamin] Tablet 1 tablet PO DAILY cetirizine [Zyrtec] 10 mg tablet 10 mg PO DAILY PRN (Reason: Allergic Symptoms) cranberry 500 mg capsule 500 mg PO DAILY Rx Instructions: administer with meals melatonin 10 mg capsule 5 mg PO QHS triamcinolone acetonide 0.1 % cream 1 applic topical BID Qty: 453.6 0RF ropinirole 1 mg tablet 1 mg PO .COMPLEX Qty: 90 3RF Rx Instructions: Take 1 tablet 2 hours before bedtime Follow-up/Referrals: Nieves Morley DO [Primary Care Provider] - Time of Disposition: 18:16
[2024-06-10 18:09] VITALS: BP 158/93; PULSE 70; RESP 16; TEMP 36.5; O2SAT 97
== END 2024-06-10 18:18 | disposition home or self-care (01) ==
PROVIDERS: Emergency Provider Nurse Practitioner; PCP Family Medicine
DX: R21 Rash and other nonspecific skin eruption (principal); Z79.899 Other long term (current) drug therapy
CPT/HCPCS: 99213; G0463

== ENCOUNTER 2024-06-24 10:34 | Emergency (ER) | payer MEDICARE, OTHER, SELFPAY ==
--- NOTE | ~2024-06-24 | XR_ITS ---
[[id number] ] INDICATION: Left rib pain after fall TECHNIQUE: Frontal projection of the upper left ribs, frontal projection of the lower left ribs, obli que projection of all the left ribs, frontal inspiratory chest x-ray for interpretation. FINDINGS: There are no displaced rib fractures identified. There are no soft tissue abnormality see n. The lungs are clear. IMPRESSION: 1:No acute displaced rib fractures. Reviewed, dictated and finalized at location A.
[2024-06-24 10:42] VITALS: BP 140/80; PULSE 70; RESP 16; TEMP 36.4; O2SAT 97
--- NOTE | 2024-06-24 10:42 | ED_ITS ---
HPI - General Adult General Chief complaint: Extremity Injury, Upper Stated complaint: FALL/RIB PAIN Time Seen by Provider: 06/24/24 10:49 Source: patient, RN notes reviewed and old records reviewed Mode of arrival: ambulatory Limitations: no limitations History of Present Illness HPI narrative: 73-year-old female presents to Express Care with complaints of rib discomfort after experiencing a fall 1 week ago while on vacation in [place]. Patient reports she fell onto her hands and knees with no complaints of pain to those areas but had metal water bottle strapped across her body. Patient reports that she has pain to the anterior lower aspect of her left rib area. Patient denies any shortness of breath does admit to mild discomfort at times when she takes a deep breath and with certain movements. Patient reports that she has been taking some Ibuprofen and Tylenol for her discomfort. MD complaint: fall Onset (ago): week(s) (1week) Location: chest (left anterior ribs) Severity scale (1-10): 2 Quality: aching Treatments prior to arrival: NSAID and other (Tylenol) Related Data Home Medications ?Medication ?Instructions ?Recorded ?Confirmed ?Last Taken ?Type multivitamin (Daily Multi-Vitamin 1 tablet PO DAILY 10/18/21 06/24/24 Unknown History tablet) cranberry 500 mg capsule 500 mg PO DAILY 11/06/21 06/24/24 Unknown History cetirizine 10 mg tablet (Zyrtec) 10 mg PO DAILY PRN Allergic 09/15/22 06/24/24 Unknown History Symptoms melatonin 10 mg capsule 5 mg PO QHS 11/19/23 06/24/24 Unknown History zolpidem 5 mg tablet (Ambien) 2.5 mg PO QHS 06/10/24 06/24/24 Unknown History Allergies Allergy/AdvReac Type Severity Reaction Status Date / Time Penicillins Allergy Unknown Hives Verified 06/24/24 10:39 Sulfa (Sulfonamide Allergy Unknown Hives Verified 06/24/24 10:39 Antibiotics) Inhaled Anesthetics (Halogen AdvReac Severe Nausea and Verified 06/24/24 10:39 Based) Vomiting trazodone AdvReac Mild Palpitation Uncoded 06/24/24 10:39 s Review of Systems Review of Systems: CONSTITUTIONAL: Denies fever, chills, or sweats. EYES: Denies visual changes, redness, or discharge. ENT: Denies rhinorrhea, congestion, sore throat, or otalgia. CARDIOVASCULAR: Denies chest pain, palpitations, or edema.positive for left anterior rib pain from fall RESPIRATORY: Denies cough or dyspnea. GASTROINTESTINAL: Denies abdominal pain, nausea, vomiting, or diarrhea. GENITOURINARY: Denies dysuria or hematuria. SKIN: Denies rash or itching. MUSCULOSKELETAL: Denies back pain, joint pain, or myalgia. NEUROLOGIC: Denies headache, numbness, or weakness. PSYCHIATRIC: Denies anxiety or depression. All systems reviewed & are unremarkable except as noted in HPI and below PMFSH Past Medical History Medical History (Updated 06/26/24 @ 21:16 by Cynthia Brower NP) Periodic limb movements of sleep Sinusitis BPPV (benign paroxysmal positional vertigo) Insomnia Interstitial cystitis Surgical History Surgical History Hx of cholecystectomy History of hysterectomy Family History Family History Other Alcohol abuse Father Lung cancer Sibling Lung cancer Social History Social History Smoking status: Never smoker Alcohol intake: current Drinks per week: 3 Alcohol use details: Beer/Wine Substance use: never Substance use type: does not use Lack of Transportation: No Lack of Food: Never True Current Housing: I Have Housing Concerned About Future Housing: No Difficulty Paying Gas/Electric Bills: No Difficulty Paying for Meds: No Currently Unemployed: No Education: Bachelor's Degree Difficulty w/ Childcare or Family Care: No Living arrangements: with family Additional living arrangements comments: Occupation/Education: retired Gender identity (if verbalized by the patient): Female Sexual Orientation (if Verbalized by the Patient): Straight or Heterosexual Agree to blood products: Yes Comments At time of signature, agree with nursing past medical, surgical, social and family history. There is no relevant family history pertinent to the presenting complaint Exam Narrative: GENERAL: Well-appearing, well-nourished, and in no acute distress. HEAD: Normocephalic, atraumatic. EYES: PERRLA and EOMI. ENT: Nares clear, no rhinorrhea or epistaxis. Mucous membranes moist. NECK: Supple.no lymphadenopathy CHEST: Clear to auscultation. No respiratory distress. reports pain to left anterior rib area from fall states some increased lower left rib pain with deep breathing and with some movement, denies any dyspnea, SAO2 97% on room air HEART: Regular rate and rhythm. No murmur heard. Normal peripheral pulses. ABDOMEN: Soft, nontender, nondistended, normal active bowel sounds. EXTREMITIES: Normal range of motion. No edema. SKIN: Warm, dry, no rash. NEURO: No focal deficits. Alert and oriented x3. Course Course Emergency Course: Patient is aware of diagnosis, understands and agrees to treatment plan.? Anticipatory guidance given.? Patient agrees to follow-up as directed and is aware of reasons to seek care at the emergency department. Portions of this record may have been created with voice recognition software Level of Care: Express Care Visit Vital Signs Vital signs: Vital Signs Temperature 36.4 C L 06/24/24 10:42 Pulse Rate 70 06/24/24 10:42 Respiratory Rate 16 06/24/24 10:42 Blood Pressure 140/80 06/24/24 10:42 Pulse Oximetry 97 06/24/24 10:42 Temperature 36.4 C L 06/24/24 10:42 Pulse Rate 70 06/24/24 10:42 Respiratory Rate 16 06/24/24 10:42 Blood Pressure 140/80 06/24/24 10:42 Pulse Oximetry 97 06/24/24 10:42 Reviewed Medical Decision Making MDM Narrative Medical decision making narrative: Exam findings and imaging show no acute concerns or changes; patient is non- toxic appearing and is in no distress.? Patient is appropriate for outpatient treatment and follow-up Differential Diagnosis Differential Diagnosis: left rib fracture, left rib contusion, fall Medical Records Medical records reviewed: Yes I reviewed the external patient's medical records. Vital Signs Vital Signs: Vital Signs Temperature 36.4 C L 06/24/24 10:42 Pulse Rate 70 06/24/24 10:42 Respiratory Rate 16 06/24/24 10:42 Blood Pressure 140/80 06/24/24 10:42 Pulse Oximetry 97 06/24/24 10:42 Temperature 36.4 C L 06/24/24 10:42 Pulse Rate 70 06/24/24 10:42 Respiratory Rate 16 06/24/24 10:42 Blood Pressure 140/80 06/24/24 10:42 Pulse Oximetry 97 06/24/24 10:42 Imaging Data Attestation: I personally reviewed and interpreted this imaging study as follows: My impression: no rib fracture, no opacity or effusions noted Radiologist's impression: [facility] [place] [address] XRay Report Signed Patient: Tayler Liu : 1950 MR#: [id number] Age: 73 Acct:[id number] Loc: [facility] ADM Date: 06/24/24Attending Dr: Ordering Physician: Cynthia Brower APRN Date of Service: 06/24/24 Procedure(s): XR ribs LT w PA CXR Accession Number(s): [id number] cc: Nieves Morley DO; Cynthia Brower APRN~ [[id number] ] INDICATION: Left rib pain after fall TECHNIQUE: Frontal projection of the upper left ribs, frontal projection of the lower left ribs, oblique projection of all the left ribs, frontal inspiratory chest x-ray for interpretation. FINDINGS: There are no displaced rib fractures identified. There are no soft tissue abnormality seen. The lungs are clear. IMPRESSION: 1:No acute displaced rib fractures. Reviewed, dictated and finalized at location A. Please be advised this is a medical document. It is intended for [id number] communication. It is written in medical language and may contain unfamiliar abbreviations or verbiage. Medical documents are intended to carry relevant information, facts as evident, and the clinical opinion of the practitioner at the time of the encounter. This report may have been done utilizing a voice recognition system. Attempts have been made to correct errors. However, there may be uncorrected grammatical, spelling, and recognition errors present. The file time of this note does not necessarily represent the time of service. Dictated By: Bran Waters MD 06/24/24 1153 Signed By: <Electronically signed by Bran Waters MD in OV> Critical Care Time Critical Care Time Critical Care Time: No Discharge Plan Discharge Clinical Impression: Contusion of rib on left side Qualifiers: Encounter type: initial encounter Qualified Code(s): S20.212A - Contusion of left front wall of thorax, initial encounter Patient Disposition: Home Condition: Stable Instructions: Rib Contusion (ED) Additional Instructions: Tylenol for lesser pain Ibuprofen regularly for the next 2-3 days for the inflammation Follow-up with PCP if further problems or concerns Ice to the Left rib area 20-30 minutes 4-6 times a day Elevate above heart If your symptoms persist, change or worsen significantly before you can contact your personal physician then please, without delay, go to the emergency department for further evaluation. Follow-up with PCP in 7-10 days or sooner if needed Follow up with PCP soon in regards to your blood pressure which is elevated above threshold for referral. Blood pressure above 120/80 may indicate pre- hypertension.140/80 Patient Language: Syriac Prescriptions: No Action zolpidem [Ambien] 5 mg tablet 2.5 mg PO QHS clotrimazole-betamethasone 1-0.05 % cream 1 applic TOPICAL BID 28 Days Qty: 45 1RF multivitamin [Daily Multi-Vitamin] Tablet 1 tablet PO DAILY cetirizine [Zyrtec] 10 mg tablet 10 mg PO DAILY PRN (Reason: Allergic Symptoms) cranberry 500 mg capsule 500 mg PO DAILY Rx Instructions: administer with meals melatonin 10 mg capsule 5 mg PO QHS triamcinolone acetonide 0.1 % cream 1 applic topical BID Qty: 453.6 0RF ropinirole 1 mg tablet 1 mg PO .COMPLEX Qty: 90 3RF Rx Instructions: Take 1 tablet 2 hours before bedtime Follow-up/Referrals: Nieves Morley DO [Primary Care Provider] - Time of Disposition: 12:07 Quality [place] Coma Scale Eyes: Open Verbal: Oriented and Alert Motor: Follows Commands Bernardo Coma Total Score: 15
== END 2024-06-24 12:10 | disposition home or self-care (01) ==
PROVIDERS: Emergency Provider Registered Nurse; PCP Family Medicine
DX: S20.212A Contusion of left front wall of thorax, initial encounter (principal); W19.XXXA Unspecified fall, initial encounter; N30.10 Interstitial cystitis (chronic) without hematuria
CPT/HCPCS: 71101; 99213; G0463

== ENCOUNTER 2024-10-03 09:38 | Emergency (ER) | payer MEDICARE, OTHER, SELFPAY ==
[2024-10-03 09:45] VITALS: BP 108/66; PULSE 76; RESP 14; TEMP 36.6; O2SAT 97
--- NOTE | 2024-10-03 09:50 | ED.URI ---
HPI - URI/Sore Throat General Chief Complaint: Upper Respiratory Infection Stated Complaint: SINUS Time Seen by Provider: 10/03/24 09:50 Source: patient Mode of arrival: ambulatory Limitations: no limitations History of Present Illness HPI Narrative: Tayler is a 74-year-old female patient presenting to the clinic today with complaints of nasal congestion, headache, sore throat, body aches, and chills x5 days. She reports she has been around her sick and grandson. States the keep passing this illness back and forth. Denies any chest pain or shortness of breath. Has taken Mucinex, ibuprofen, and Sudafed for her symptoms. Related Data Allergies Allergy/AdvReac Type Severity Reaction Status Date / Time Penicillins Allergy Unknown Hives Verified 10/03/24 09:54 Sulfa (Sulfonamide Allergy Unknown Hives Verified 10/03/24 09:54 Antibiotics) Inhaled Anesthetics (Halogen AdvReac Severe Nausea and Verified 10/03/24 09:54 Based) Vomiting trazodone AdvReac Mild Palpitation Uncoded 10/03/24 09:54 s Review of Systems Review of Systems: Pertinent positives per HPI. Patient denies any fever, chills, rash, headache, visual changes, dizziness, cough, shortness of breath, chest pain, palpitations, nausea, vomiting, diarrhea, constipation, abdominal pain, or any urinary issues. [facility] Past Medical History Medical History Periodic limb movements of sleep Sinusitis BPPV (benign paroxysmal positional vertigo) Insomnia Interstitial cystitis Surgical History Surgical History Hx of cholecystectomy History of hysterectomy Family History Family History Other Alcohol abuse Father Lung cancer Sibling Lung cancer Social History Social History Smoking status: Never smoker Alcohol intake: current Drinks per week: 3 Alcohol use details: Beer/Wine Substance use: never Substance use type: does not use Lack of Transportation: No Lack of Food: Never True Current Housing: I Have Housing Concerned About Future Housing: No Difficulty Paying Gas/Electric Bills: No Difficulty Paying for Meds: No Currently Unemployed: No Education: Bachelor's Degree Difficulty w/ Childcare or Family Care: No Living arrangements: with family Additional living arrangements comments: Occupation/Education: retired Gender identity (if verbalized by the patient): Female Sexual Orientation (if Verbalized by the Patient): Straight or Heterosexual Agree to blood products: Yes Comments At the time of my signature, I reviewed and agree with the nursing past medical, surgical, social, and family history. There is no relevant family history pertinent to the patient complaint. Exam Narrative: General: Well-developed, well nourished, in no apparent distress Head: Normocephalic, atraumatic Eyes: Pupils equally round and reactive to light bilaterally, EOM intact, sclera and conjunctive clear, no discharge, lids normal Ears: TMs intact and clear, ear canals clear, no drainage, grossly hearing normal. Nose: Nares patent, no discharge, no inflammation, no sinus tenderness. Mouth: Oral pharynx without lesions or masses, good dentition, MMM. Neck: Supple, trachea midline, no enlargement of anterior or posterior cervical nodes, no thyroid masses or goiter palpable. Cardio: Regular rate and rhythm, s1 and s2 normal, no murmur appreciated. Resp: Clear to auscultation bilaterally, no rhonchi, rales, wheezing or rubs Course Course Emergency Course: Portions of this record may have been created with voice recognition software. Level of Care: Express Care Visit Vital Signs Vital signs: Vital Signs Temperature 36.6 C 10/03/24 09:45 Pulse Rate 76 10/03/24 09:45 Respiratory Rate 14 10/03/24 09:45 Blood Pressure 108/66 10/03/24 09:45 Pulse Oximetry 97 10/03/24 09:45 Oxygen Delivery Room Air 10/03/24 09:45 Temperature 36.6 C 10/03/24 09:45 Pulse Rate 76 10/03/24 09:45 Respiratory Rate 14 10/03/24 09:45 Blood Pressure 108/66 10/03/24 09:45 Pulse Oximetry 97 10/03/24 09:45 Oxygen Delivery Room Air 10/03/24 09:45 Vital signs reviewed MDM - URI/Sore Throat MDM Narrative Medical decision making narrative: At the time of visit patient is resting comfortably on the exam table. Patient appears to be nontoxic. Complaints of nasal congestion, headache, sore throat, body aches, and chills x5 days. She reports she has been around her sick and grandson. States the keep passing this illness back and forth. Denies any chest pain or shortness of breath. Has taken Mucinex, ibuprofen, and Sudafed for her symptoms. COVID, influenza, and strep test were ordered. Labs: COVID, influenza, and strep test were all negative. We will send strep for culture. Plan: I suspect patient has URI/pharyngitis. Prescription for prednisone was sent to the pharmacy. Supportive measures were discussed with the patient and they voiced understanding discharge instructions and agrees to treatment plan. Return precautions reviewed Differential Diagnosis Differential diagnosis: Likely upper respiratory infection, otitis media, sinusitis, viral infection, bronchitis, influenza, pharyngitis and other (COVID) Discharge Plan Discharge Clinical Impression: URI (upper respiratory infection) Qualifiers: URI type: unspecified URI Qualified Code(s): J06.9 - Acute upper respiratory infection, unspecified Pharyngitis Qualifiers: Pharyngitis/tonsillitis etiology: unspecified etiology Qualified Code(s): J02.9 - Acute pharyngitis, unspecified Patient Disposition: Home Condition: Stable Instructions: Antibiotic Form, Pharyngitis (ED), Cold Symptoms (ED) Additional Instructions: COVID, influenza, and strep test were all negative in the clinic today. We will send strep for culture if this comes back positive we will contact him place you on antibiotics at that time. Take prescription medications only as prescribed-prednisone Increase fluids and stay well hydrated May take Tylenol or motrin as directed on bottle for pain/fever May use Flonase 1 spray in each nare daily May take OTC antihistamines such as Zyrtec or Claritin daily as directed on bottle May apply Vicks vapor rub to chest to open sinuses Sinus rinses for congestion Cepacol spray, cough drops, throat lozenges, warm tea with honey/lemon, gargle salt water to soothe throat BRAT diet for diarrhea Clear liquids x 24 hours then advance as tolerated for nausea/vomiting Go to the ED if you develop a worsening in your condition- high fever not controlled by Tylenol or Motrin, dehydration, weakness, lethargy, shortness of breath, or chest pain. Follow up with your PCP in 3-5 days if symptoms persist. Patient Language: Filipino Prescriptions: New prednisone 20 mg tablet 40 mg PO DAILY 5 Days Qty: 10 0RF No Action ropinirole 1 mg tablet 1 mg PO .COMPLEX Qty: 90 3RF Rx Instructions: Take 1 tablet 2 hours before bedtime Follow-up/Referrals: Nieves Morley DO [Primary Care Provider] - Time of Disposition: 10:14 Quality NIHSS Nursing Documentation ED NIHSS nursing documentation: reviewed/agree
[2024-10-03 10:09] LABS: EDCOVIDSCREEN Negative (Negative); EDINFLUASCREEN Negative (Negative); EDINFLUBSCREEN Negative (Negative); EDSTREPNEGPOS1 Negative (Negative)
== END 2024-10-03 10:16 | disposition home or self-care (01) ==
PROVIDERS: Emergency Provider Nurse Practitioner Family; PCP Family Medicine
DX: J06.9 Acute upper respiratory infection, unspecified (principal); J02.9 Acute pharyngitis, unspecified
CPT/HCPCS: 87081; 87426; 87804; 87880; 99213; G0463